=== PATIENT | female | born 1970 | race Two or more races ===

== ENCOUNTER 2022-10-01 11:00 | Inpatient (IN) | payer OTHER ==
[2022-10-01] MEDS ORDERED: ALBUTEROL SO4 2.5/IPRATROPIUM 0.5 INH SOL 3 ML VIAL.NEB. NEB ONE (11:04)
[2022-10-01] MEDS ORDERED: DEXAMETHASONE SOD PHOSPHATE 10 MG/1 ML VIAL ONE (11:06)
[2022-10-01] MEDS ORDERED: MAGNESIUM SULFATE IN WATER 2 GM/50 ML IVPB IVPB ONE (11:10)
[2022-10-01] MEDS ORDERED: MAGNESIUM SULF 50% (8.12 MEQ/2 ML-1 GM VIAL) IVPB ONE (11:14)
[2022-10-01 11:39] LABS: VENOUS BASE EXCESS -0.6 mmol/L (-2-2); VENOUS PCO2 50.7 mmHg (38-52); VENOUS PH 7.33 (7.310-7.410)
[2022-10-01 11:42] LABS: INR 1.17 (0.83-1.09); PROTHROMBIN TIME (PATIENT) 13.5 SEC (9.7-13.0)
[2022-10-01 11:45] LABS: ACTIVATED PTT 34.6 SECONDS (25.2-36.5)
[2022-10-01 11:46] LABS: CHLORIDE 108 mmol/L (98-107); SODIUM 141 mmol/L (136-145)
[2022-10-01 11:47] LABS: BASO % 0.8 % (0-2.0); EOS % 3.1 % (0-4.5); HEMATOCRIT 37.9 % (32.4-45.2); HEMOGLOBIN 12.7 GM/dL (10.7-15.3); LYMPH % 15.7 % (8-40); MCH 28.1 pg (25.7-33.7); MCHC 33.6 g/dl (32.0-36.0); MEAN CELL VOLUME 83.5 fl (80-96); MONO % 6.7 % (3.8-10.2); NEUT % 73.7 % (42.8-82.8); PLATELET COUNT 161 10^3/uL (134-434); RBC 4.53 M/mm3 (3.60-5.2); RDW 14.2 % (11.6-15.6); WHITE BLOOD COUNT 7.5 K/mm3 (4.0-10.0)
[2022-10-01 11:48] LABS: CALCIUM 9.4 mg/dL (8.5-10.1)
[2022-10-01 11:49] LABS: ALBUMIN 3.1 g/dl (3.4-5.0); ANION GAP 4 MMOL/L (8-16); BLOOD UREA NITROGEN 9.8 mg/dL (7-18); CO2 29 mmol/L (21-32); GLUCOSE,RANDOM 291 mg/dL (74-106); MAGNESIUM 1.5 mg/dL (1.8-2.4)
[2022-10-01 11:52] LABS: CREATININE 0.7 mg/dL (0.55-1.3); SGOT/AST 19 U/L (15-37)
[2022-10-01 11:54] LABS: BILIRUBIN,TOTAL 0.3 mg/dL (0.2-1); TOT PROT 7.2 g/dl (6.4-8.2)
[2022-10-01 11:55] LABS: ALK PHOS 112 U/L (45-117); N-TERMINAL BNP 2893.1 pg/ml (5-125)
[2022-10-01] MEDS ORDERED: FUROSEMIDE 40 MG/4 ML INJECTABLE VIAL IVPUSH ONE (11:56)
[2022-10-01] MEDS ORDERED: FUROSEMIDE 40 MG/4 ML INJECTABLE VIAL ONE (12:00)
[2022-10-01 12:02] LABS: SGPT/ALT 31 U/L (13-61)
[2022-10-01] MEDS ORDERED: ASPIRIN 81 MG CHEWABLE TABLETS PO ONE (13:16)
[2022-10-01] MEDS: INSULIN SLIDING SCALE (NOVOLOG) 1 VIAL SQ SCH ×3 (14:33→21:42)
[2022-10-01] MEDS ORDERED: INSULIN SLIDING SCALE (NOVOLOG) 1 VIAL SQ SCH ×4 (16:30)
[2022-10-01] MEDS ORDERED: metFORMIN HCL 500 MG TABLET (FP) PO SCH (16:30)
[2022-10-01] MEDS ORDERED: INSULIN (NOVOLOG) ASPART 100 UNITS/ML 10ML VIAL ONE (17:06)
[2022-10-01 18:08] LABS: CHOLESTEROL 198 mg/dL (50-200)
[2022-10-01 18:09] LABS: LDL CHOLESTEROL (ONLY SJRH) 122 mg/dL (5-100)
[2022-10-01 18:11] LABS: HDL CHOLESTEROL 43 mg/dL (40-60)
[2022-10-01 18:36] LABS: EPI CELLS 2 /uL (0-25.1); HYALINE CASTS 1 /uL (0-3.1); URINE APPEARANCE CLEAR; URINE BACTERIA 2 /uL (0-1359); URINE BILIRUBIN NEGATIVE (NEGATIVE); URINE COLOR YELLOW; URINE GLUCOSE (UA) 3+ (NEGATIVE); URINE KETONE NEGATIVE (NEGATIVE); URINE LEUK ESTERASE NEGATIVE (NEGATIVE); URINE NITRITE NEGATIVE (NEGATIVE); URINE PROTEIN NEGATIVE (NEGATIVE); URINE RBC 10 /uL (0-23.9); URINE UROBILINOGEN 0.2 mg/dL (0.2-1.0); URINE WBC 1 /uL (0-25.8)
[2022-10-01] MEDS: ACETAMINOPHEN 325 MG TABLET (FP) PO PRN (20:24)
[2022-10-01] MEDS: clonazePAM 0.5 MG TABLET PO PRN (20:26)
[2022-10-01 20:43] LABS: LACTIC ACID 4.7 mmol/L (0.4-2.0)
[2022-10-01] MEDS: HEPARIN NA (PORCINE) 5,000 UNITS/ML 1ML VIAL SQ SCH (21:41)
[2022-10-01] MEDS: INSULIN (LEVEMIR) 100 UNITS/ML UNITS SQ SCH (21:42)
[2022-10-01] MEDS: metoPROLOL SUCCINATE 25 MG TAB.SR.24H (FP) PO SCH (21:50)
[2022-10-01] MEDS ORDERED: DULoxetine HCL 30 MG CAPSULE.DR PO ONE (23:59)
[2022-10-02] MEDS: MELATONIN 5 MG TABLETS PO PRN (00:18)
[2022-10-02 01:00] LABS: LACTIC ACID 3.6 mmol/L (0.4-2.0)
[2022-10-02] MEDS: HEPARIN NA (PORCINE) 5,000 UNITS/ML 1ML VIAL SQ SCH ×3 (06:26→21:38)
[2022-10-02] MEDS: FUROSEMIDE 40 MG/4 ML INJECTABLE VIAL IVPUSH SCH ×2 (06:26→15:10)
[2022-10-02] MEDS: LEVOTHYROXINE NA 150 MCG TABLET PO SCH (06:27)
[2022-10-02] MEDS: INSULIN SLIDING SCALE (NOVOLOG) 1 VIAL SQ SCH ×4 (06:28→21:55)
[2022-10-02] MEDS: SPIRONOLACTONE 25 MG TABLET PO SCH (09:48)
[2022-10-02] MEDS: DULoxetine HCL 30 MG CAPSULE.DR PO SCH (09:48)
[2022-10-02] MEDS: metoPROLOL SUCCINATE 25 MG TAB.SR.24H (FP) PO SCH ×2 (09:48→21:38)
[2022-10-02] MEDS: clonazePAM 0.5 MG TABLET PO PRN ×2 (09:49→22:40)
[2022-10-02] MEDS ORDERED: FUROSEMIDE 40 MG/4 ML INJECTABLE VIAL IVPUSH SCH (10:00)
[2022-10-02] MEDS ORDERED: oxyCODONE HCL 5 MG TABLET PO ONE (20:33)
[2022-10-02] MEDS ORDERED: ACETAMINOPHEN 1000 MG/100 ML BAG IVPB ONE ×2 (20:33)
[2022-10-02] MEDS ORDERED: ALBUTEROL SO4 2.5/IPRATROPIUM 0.5 INH SOL 3 ML VIAL.NEB. NEB ONE (21:06)
[2022-10-02] MEDS ORDERED: INSULIN (NOVOLOG) ASPART 100 UNITS/ML 10ML VIAL ONE ×2 (21:46→21:48)
[2022-10-02] MEDS: INSULIN (LEVEMIR) 100 UNITS/ML UNITS SQ SCH (21:54)
[2022-10-03] MEDS ORDERED: ALBUTEROL SO4 2.5/IPRATROPIUM 0.5 INH SOL 3 ML VIAL.NEB. NEB ONE (06:37)
[2022-10-03] MEDS: HEPARIN NA (PORCINE) 5,000 UNITS/ML 1ML VIAL SQ SCH ×3 (06:41→21:09)
[2022-10-03] MEDS ORDERED: INSULIN (NOVOLOG) ASPART 100 UNITS/ML 10ML VIAL ONE ×2 (06:43→21:25)
[2022-10-03] MEDS: INSULIN SLIDING SCALE (NOVOLOG) 1 VIAL SQ SCH ×4 (06:45→21:26)
[2022-10-03] MEDS: FUROSEMIDE 40 MG/4 ML INJECTABLE VIAL IVPUSH SCH ×2 (06:45→14:14)
[2022-10-03] MEDS: LEVOTHYROXINE NA 150 MCG TABLET PO SCH (06:46)
[2022-10-03] MEDS ORDERED: ALBUTEROL SO4 0.083% IH SOL 2.5 MG/3 ML VIAL.NEB. NEB ONE (06:47)
[2022-10-03] MEDS: metoPROLOL SUCCINATE 25 MG TAB.SR.24H (FP) PO SCH ×2 (09:07→21:10)
[2022-10-03] MEDS: DULoxetine HCL 30 MG CAPSULE.DR PO SCH (09:07)
[2022-10-03] MEDS: SPIRONOLACTONE 25 MG TABLET PO SCH (09:07)
[2022-10-03] MEDS: SACUBITRIL/VALSARTAN 24 MG-26 MG TABLET PO SCH ×2 (09:08→21:09)
[2022-10-03] MEDS: ACETAMINOPHEN 325 MG TABLET (FP) PO PRN (09:20)
[2022-10-03 11:04] LABS: HEMATOCRIT 36.2 % (32.4-45.2); MCH 27.3 pg (25.7-33.7); MCHC 33.2 g/dl (32.0-36.0); MEAN CELL VOLUME 82.4 fl (80-96); MEAN PLT VOLUME 9.5 fl (7.5-11.1); PLATELET COUNT 156 10^3/uL (134-434); RDW 14.4 % (11.6-15.6); WHITE BLOOD COUNT 8.8 K/mm3 (4.0-10.0)
[2022-10-03 11:39] LABS: CALCIUM 8.6 mg/dL (8.5-10.1)
[2022-10-03 11:40] LABS: BLOOD UREA NITROGEN 23.4 mg/dL (7-18); MAGNESIUM 1.4 mg/dL (1.8-2.4)
[2022-10-03 11:43] LABS: CREATININE 0.9 mg/dL (0.55-1.3)
[2022-10-03 11:44] LABS: BILIRUBIN,TOTAL 0.4 mg/dL (0.2-1)
[2022-10-03 11:45] LABS: TOT PROT 6.6 g/dl (6.4-8.2)
[2022-10-03] MEDS ORDERED: ALBUTEROL SO4 0.042% IH SOL 1.25 MG/3 ML VIAL.NEB NEB PRN (19:26)
[2022-10-03] MEDS: CYCLOBENZAPRINE HCL 10 MG TABLET (FP) PO SCH (21:09)
[2022-10-03] MEDS: PREGABALIN 100 MG CAPSULE PO SCH (21:09)
[2022-10-03] MEDS: clonazePAM 0.5 MG TABLET PO PRN (21:14)
[2022-10-03] MEDS: INSULIN (LEVEMIR) 100 UNITS/ML UNITS SQ SCH (21:25)
[2022-10-03] MEDS ORDERED: LEVOTHYROXINE NA 150 MCG TABLET PO SCH (21:43)
[2022-10-04] MEDS: FUROSEMIDE 40 MG/4 ML INJECTABLE VIAL IVPUSH SCH ×2 (06:29→13:19)
[2022-10-04] MEDS: HEPARIN NA (PORCINE) 5,000 UNITS/ML 1ML VIAL SQ SCH ×3 (06:29→21:19)
[2022-10-04] MEDS: CYCLOBENZAPRINE HCL 10 MG TABLET (FP) PO SCH ×3 (06:29→21:19)
[2022-10-04] MEDS ORDERED: INSULIN (NOVOLOG) ASPART 100 UNITS/ML 10ML VIAL ONE ×3 (06:32→21:18)
[2022-10-04] MEDS: INSULIN SLIDING SCALE (NOVOLOG) 1 VIAL SQ SCH ×4 (06:33→21:20)
[2022-10-04] MEDS: LEVOTHYROXINE 100 MCG, LEVOTHYROXINE 75 MCG PO SCH (06:33)
[2022-10-04] MEDS: SPIRONOLACTONE 25 MG TABLET PO SCH (10:00)
[2022-10-04] MEDS: PREGABALIN 100 MG CAPSULE PO SCH ×2 (10:00→21:19)
[2022-10-04] MEDS: DULoxetine HCL 30 MG CAPSULE.DR PO SCH (10:00)
[2022-10-04] MEDS: SACUBITRIL/VALSARTAN 24 MG-26 MG TABLET PO SCH ×2 (10:01→21:07)
[2022-10-04] MEDS: metoPROLOL SUCCINATE 25 MG TAB.SR.24H (FP) PO SCH ×2 (10:01→21:07)
[2022-10-04 11:47] LABS: BASO % 0.6 % (0-2.0); EOS % 3.4 % (0-4.5); HEMATOCRIT 37.7 % (32.4-45.2); HEMOGLOBIN 12.3 GM/dL (10.7-15.3); LYMPH % 19.3 % (8-40); MCH 27.1 pg (25.7-33.7); MCHC 32.7 g/dl (32.0-36.0); MEAN CELL VOLUME 82.9 fl (80-96); MEAN PLT VOLUME 9.2 fl (7.5-11.1); MONO % 9.4 % (3.8-10.2); NEUT % 67.3 % (42.8-82.8); PLATELET COUNT 166 10^3/uL (134-434); RBC 4.55 M/mm3 (3.60-5.2); RDW 14.4 % (11.6-15.6)
[2022-10-04 12:14] LABS: CALCIUM 8.6 mg/dL (8.5-10.1)
[2022-10-04 12:15] LABS: ALBUMIN 2.8 g/dl (3.4-5.0); BLOOD UREA NITROGEN 21.9 mg/dL (7-18)
[2022-10-04 12:19] LABS: BILIRUBIN,TOTAL 0.4 mg/dL (0.2-1); TOT PROT 6.3 g/dl (6.4-8.2)
[2022-10-04] MEDS: ALBUTEROL SO4 2.5/IPRATROPIUM 0.5 INH SOL 3 ML VIAL.NEB. NEB SCH ×2 (14:30→20:45)
[2022-10-04] MEDS ORDERED: SODIUM CHLORIDE 250 ML IV STA (17:43)
[2022-10-04] MEDS: INSULIN (LEVEMIR) 100 UNITS/ML UNITS SQ SCH (21:19)
[2022-10-04] MEDS: MELATONIN 5 MG TABLETS PO PRN (21:26)
[2022-10-05] MEDS: LEVOTHYROXINE 100 MCG, LEVOTHYROXINE 75 MCG PO SCH (06:19)
[2022-10-05] MEDS: HEPARIN NA (PORCINE) 5,000 UNITS/ML 1ML VIAL SQ SCH ×3 (06:19→22:18)
[2022-10-05] MEDS: CYCLOBENZAPRINE HCL 10 MG TABLET (FP) PO SCH ×3 (06:19→22:18)
[2022-10-05] MEDS: FUROSEMIDE 40 MG/4 ML INJECTABLE VIAL IVPUSH SCH (06:19)
[2022-10-05] MEDS: ACETAMINOPHEN 325 MG TABLET (FP) PO PRN ×2 (06:27→12:10)
[2022-10-05] MEDS: INSULIN SLIDING SCALE (NOVOLOG) 1 VIAL SQ SCH ×4 (06:28→22:29)
[2022-10-05] MEDS ORDERED: MAGNESIUM SULF 50% (8.12 MEQ/2 ML-1 GM VIAL) IVPB ONE (08:30)
[2022-10-05] MEDS: ALBUTEROL SO4 2.5/IPRATROPIUM 0.5 INH SOL 3 ML VIAL.NEB. NEB SCH ×3 (08:40→20:50)
[2022-10-05] MEDS: SPIRONOLACTONE 25 MG TABLET PO SCH (09:53)
[2022-10-05] MEDS: PREGABALIN 100 MG CAPSULE PO SCH ×2 (09:54→22:18)
[2022-10-05] MEDS: SACUBITRIL/VALSARTAN 24 MG-26 MG TABLET PO SCH ×2 (09:54→22:18)
[2022-10-05] MEDS: metoPROLOL SUCCINATE 25 MG TAB.SR.24H (FP) PO SCH ×2 (09:55→22:18)
[2022-10-05] MEDS: DULoxetine HCL 30 MG CAPSULE.DR PO SCH (09:56)
[2022-10-05 11:31] LABS: BASO % 0.7 % (0-2.0); EOS % 3.4 % (0-4.5); HEMOGLOBIN 12.1 GM/dL (10.7-15.3); LYMPH % 19.5 % (8-40); MCH 27.3 pg (25.7-33.7); MCHC 32.9 g/dl (32.0-36.0); MEAN CELL VOLUME 83.1 fl (80-96); MEAN PLT VOLUME 9.4 fl (7.5-11.1); MONO % 7.1 % (3.8-10.2); NEUT % 69.3 % (42.8-82.8); PLATELET COUNT 156 10^3/uL (134-434); RBC 4.45 M/mm3 (3.60-5.2); RDW 14.3 % (11.6-15.6); WHITE BLOOD COUNT 6.8 K/mm3 (4.0-10.0)
[2022-10-05 11:46] LABS: ALBUMIN 2.8 g/dl (3.4-5.0); BLOOD UREA NITROGEN 26.3 mg/dL (7-18); CALCIUM 8.6 mg/dL (8.5-10.1)
[2022-10-05 11:48] LABS: CREATININE 0.8 mg/dL (0.55-1.3)
[2022-10-05 11:50] LABS: BILIRUBIN,TOTAL 0.5 mg/dL (0.2-1)
[2022-10-05 11:52] LABS: TOT PROT 6.2 g/dl (6.4-8.2)
[2022-10-05] MEDS ORDERED: INSULIN (NOVOLOG) ASPART 100 UNITS/ML 10ML VIAL ONE ×2 (12:07→16:47)
[2022-10-05] MEDS: MELATONIN 5 MG TABLETS PO PRN (22:18)
[2022-10-05] MEDS: INSULIN (LEVEMIR) 100 UNITS/ML UNITS SQ SCH (22:23)
[2022-10-06] MEDS: ACETAMINOPHEN 325 MG TABLET (FP) PO PRN (01:05)
[2022-10-06] MEDS: LEVOTHYROXINE 100 MCG, LEVOTHYROXINE 75 MCG PO SCH (06:26)
[2022-10-06] MEDS: CYCLOBENZAPRINE HCL 10 MG TABLET (FP) PO SCH ×3 (06:26→21:55)
[2022-10-06] MEDS: INSULIN SLIDING SCALE (NOVOLOG) 1 VIAL SQ SCH ×4 (06:28→22:31)
[2022-10-06] MEDS: HEPARIN NA (PORCINE) 5,000 UNITS/ML 1ML VIAL SQ SCH ×3 (06:29→21:56)
[2022-10-06] MEDS: ALBUTEROL SO4 2.5/IPRATROPIUM 0.5 INH SOL 3 ML VIAL.NEB. NEB SCH ×3 (08:25→21:25)
[2022-10-06] MEDS ORDERED: clonazePAM 2 MG TABLET PO SCH (10:00)
[2022-10-06] MEDS: SPIRONOLACTONE 25 MG TABLET PO SCH (10:08)
[2022-10-06] MEDS: SACUBITRIL/VALSARTAN 24 MG-26 MG TABLET PO SCH ×2 (10:10→21:55)
[2022-10-06] MEDS: TORSEMIDE 20 MG TABLET (FP) PO SCH (10:10)
[2022-10-06] MEDS: DULoxetine HCL 30 MG CAPSULE.DR PO SCH (10:11)
[2022-10-06] MEDS: metoPROLOL SUCCINATE 25 MG TAB.SR.24H (FP) PO SCH ×2 (10:11→21:55)
[2022-10-06] MEDS: PREGABALIN 100 MG CAPSULE PO SCH ×2 (10:12→21:55)
[2022-10-06] MEDS ORDERED: INSULIN (NOVOLOG) ASPART 100 UNITS/ML 10ML VIAL ONE ×3 (12:14→22:29)
[2022-10-06] MEDS: clonazePAM 0.5 MG TABLET PO PRN (21:55)
[2022-10-06] MEDS: MELATONIN 5 MG TABLETS PO PRN (21:55)
[2022-10-06] MEDS: INSULIN (LEVEMIR) 100 UNITS/ML UNITS SQ SCH (22:30)
[2022-10-07] MEDS: HEPARIN NA (PORCINE) 5,000 UNITS/ML 1ML VIAL SQ SCH ×3 (06:11→21:05)
[2022-10-07] MEDS ORDERED: INSULIN (NOVOLOG) ASPART 100 UNITS/ML 10ML VIAL ONE ×3 (06:57→11:48)
[2022-10-07] MEDS: LEVOTHYROXINE 100 MCG, LEVOTHYROXINE 75 MCG PO SCH (06:58)
[2022-10-07] MEDS: CYCLOBENZAPRINE HCL 10 MG TABLET (FP) PO SCH ×3 (06:58→21:06)
[2022-10-07] MEDS: INSULIN SLIDING SCALE (NOVOLOG) 1 VIAL SQ SCH ×4 (06:58→22:39)
[2022-10-07] MEDS: ALBUTEROL SO4 2.5/IPRATROPIUM 0.5 INH SOL 3 ML VIAL.NEB. NEB SCH ×3 (08:40→20:36)
[2022-10-07] MEDS: DULoxetine HCL 30 MG CAPSULE.DR PO SCH (09:58)
[2022-10-07] MEDS: PREGABALIN 100 MG CAPSULE PO SCH ×2 (09:58→21:08)
[2022-10-07] MEDS: SACUBITRIL/VALSARTAN 24 MG-26 MG TABLET PO SCH ×2 (09:59→21:06)
[2022-10-07] MEDS: TORSEMIDE 20 MG TABLET (FP) PO SCH (09:59)
[2022-10-07] MEDS: SPIRONOLACTONE 25 MG TABLET PO SCH (09:59)
[2022-10-07] MEDS: metoPROLOL SUCCINATE 25 MG TAB.SR.24H (FP) PO SCH ×2 (09:59→21:11)
[2022-10-07 16:11] LABS: EPI CELLS >36 /uL (0-25.1); HYALINE CASTS 3 /uL (0-3.1); PH,URINE 6.5 (5.0-8.0); URINE APPEARANCE CLOUDY; URINE BACTERIA >9,000 /uL (0-1359); URINE BILIRUBIN NEGATIVE (NEGATIVE); URINE COLOR YELLOW; URINE GLUCOSE (UA) 2+ (NEGATIVE); URINE KETONE NEGATIVE (NEGATIVE); URINE LEUK ESTERASE 3+ (NEGATIVE); URINE NITRITE POSITIVE (NEGATIVE); URINE PROTEIN 1+ (NEGATIVE); URINE RBC 31 /uL (0-23.9); URINE WBC 1840 /uL (0-25.8)
[2022-10-07] MEDS: COLLAGENASE CLOSTRIDIUM HIST. 30 GRAMS TUBE TP SCH (18:56)
[2022-10-07] MEDS: MELATONIN 5 MG TABLETS PO PRN (21:06)
[2022-10-07] MEDS: clonazePAM 0.5 MG TABLET PO PRN (21:07)
[2022-10-07] MEDS: INSULIN (LEVEMIR) 100 UNITS/ML UNITS SQ SCH (22:38)
[2022-10-07 23:36] VITALS: BMI 56.5
[2022-10-08] MEDS: HEPARIN NA (PORCINE) 5,000 UNITS/ML 1ML VIAL SQ SCH ×3 (06:47→21:47)
[2022-10-08] MEDS: LEVOTHYROXINE 100 MCG, LEVOTHYROXINE 75 MCG PO SCH (06:48)
[2022-10-08] MEDS: INSULIN SLIDING SCALE (NOVOLOG) 1 VIAL SQ SCH ×4 (06:49→22:52)
[2022-10-08] MEDS: CYCLOBENZAPRINE HCL 10 MG TABLET (FP) PO SCH ×3 (06:55→21:53)
[2022-10-08] MEDS: ALBUTEROL SO4 2.5/IPRATROPIUM 0.5 INH SOL 3 ML VIAL.NEB. NEB SCH ×3 (07:40→20:05)
[2022-10-08] MEDS: SACUBITRIL/VALSARTAN 24 MG-26 MG TABLET PO SCH ×2 (10:39→21:49)
[2022-10-08] MEDS: COLLAGENASE CLOSTRIDIUM HIST. 30 GRAMS TUBE TP SCH (10:40)
[2022-10-08] MEDS: metoPROLOL SUCCINATE 25 MG TAB.SR.24H (FP) PO SCH ×2 (10:40→21:48)
[2022-10-08] MEDS: DULoxetine HCL 30 MG CAPSULE.DR PO SCH (10:41)
[2022-10-08] MEDS: PREGABALIN 100 MG CAPSULE PO SCH ×2 (10:41→21:48)
[2022-10-08] MEDS: SPIRONOLACTONE 25 MG TABLET PO SCH (10:42)
[2022-10-08] MEDS: TORSEMIDE 20 MG TABLET (FP) PO SCH (10:42)
[2022-10-08] MEDS: clonazePAM 0.5 MG TABLET PO PRN (21:48)
[2022-10-08] MEDS: MELATONIN 5 MG TABLETS PO PRN (21:54)
[2022-10-08] MEDS: INSULIN (LEVEMIR) 100 UNITS/ML UNITS SQ SCH (22:51)
[2022-10-09] MEDS: ACETAMINOPHEN 325 MG TABLET (FP) PO PRN ×2 (05:33→21:57)
[2022-10-09] MEDS: CYCLOBENZAPRINE HCL 10 MG TABLET (FP) PO SCH ×3 (05:35→21:59)
[2022-10-09] MEDS: INSULIN (LEVEMIR) 100 UNITS/ML UNITS SQ SCH ×2 (06:22→22:53)
[2022-10-09] MEDS: LEVOTHYROXINE 100 MCG, LEVOTHYROXINE 75 MCG PO SCH (06:23)
[2022-10-09] MEDS: INSULIN SLIDING SCALE (NOVOLOG) 1 VIAL SQ SCH ×4 (06:23→22:57)
[2022-10-09] MEDS: ALBUTEROL SO4 2.5/IPRATROPIUM 0.5 INH SOL 3 ML VIAL.NEB. NEB SCH (08:10)
[2022-10-09] MEDS: SPIRONOLACTONE 25 MG TABLET PO SCH (09:06)
[2022-10-09] MEDS: DULoxetine HCL 30 MG CAPSULE.DR PO SCH (09:07)
[2022-10-09] MEDS: TORSEMIDE 20 MG TABLET (FP) PO SCH (09:07)
[2022-10-09] MEDS: metoPROLOL SUCCINATE 25 MG TAB.SR.24H (FP) PO SCH (09:08)
[2022-10-09] MEDS: COLLAGENASE CLOSTRIDIUM HIST. 30 GRAMS TUBE TP SCH (09:08)
[2022-10-09] MEDS: PREGABALIN 100 MG CAPSULE PO SCH ×2 (09:08→21:59)
[2022-10-09] MEDS: SACUBITRIL/VALSARTAN 24 MG-26 MG TABLET PO SCH ×2 (09:08→21:59)
[2022-10-09] MEDS ORDERED: FLUCONAZOLE 100 MG TABLET (UD) PO ONE (09:47)
[2022-10-09] MEDS: NYSTATIN 100,000 UNIT/GM TOPICAL CREAM 15 GM TUBE TP SCH ×2 (12:22→21:59)
[2022-10-09] MEDS ORDERED: INSULIN (NOVOLOG) ASPART 100 UNITS/ML 10ML VIAL ONE ×2 (12:37→16:37)
[2022-10-09] MEDS: MELATONIN 5 MG TABLETS PO PRN (22:01)
[2022-10-09] MEDS ORDERED: clonazePAM 0.5 MG TABLET PO ONE (23:17)
[2022-10-10] MEDS: LEVOTHYROXINE 100 MCG, LEVOTHYROXINE 75 MCG PO SCH (06:35)
[2022-10-10] MEDS: CYCLOBENZAPRINE HCL 10 MG TABLET (FP) PO SCH ×3 (06:35→21:34)
[2022-10-10] MEDS: INSULIN (LEVEMIR) 100 UNITS/ML UNITS SQ SCH ×2 (06:37→21:35)
[2022-10-10] MEDS: INSULIN SLIDING SCALE (NOVOLOG) 1 VIAL SQ SCH ×4 (06:38→21:31)
[2022-10-10] MEDS: DULoxetine HCL 30 MG CAPSULE.DR PO SCH (09:36)
[2022-10-10] MEDS: SACUBITRIL/VALSARTAN 24 MG-26 MG TABLET PO SCH ×2 (09:37→21:35)
[2022-10-10] MEDS: PREGABALIN 100 MG CAPSULE PO SCH ×2 (09:37→21:36)
[2022-10-10] MEDS: TORSEMIDE 20 MG TABLET (FP) PO SCH (09:37)
[2022-10-10] MEDS: COLLAGENASE CLOSTRIDIUM HIST. 30 GRAMS TUBE TP SCH (09:38)
[2022-10-10] MEDS: SPIRONOLACTONE 25 MG TABLET PO SCH (10:00)
[2022-10-10] MEDS: metoPROLOL SUCCINATE 25 MG TAB.SR.24H (FP) PO SCH (10:00)
[2022-10-10] MEDS: NYSTATIN 100,000 UNIT/GM TOPICAL CREAM 15 GM TUBE TP SCH ×2 (10:00→23:10)
[2022-10-10] MEDS ORDERED: INSULIN (NOVOLOG) ASPART 100 UNITS/ML 10ML VIAL ONE (21:32)
[2022-10-10] MEDS: MELATONIN 5 MG TABLETS PO PRN (21:40)
[2022-10-11] MEDS: ACETAMINOPHEN 325 MG TABLET (FP) PO PRN ×2 (05:29→21:42)
[2022-10-11] MEDS: CYCLOBENZAPRINE HCL 10 MG TABLET (FP) PO SCH ×3 (05:31→21:41)
[2022-10-11] MEDS ORDERED: INSULIN (NOVOLOG) ASPART 100 UNITS/ML 10ML VIAL ONE ×4 (06:22→21:40)
[2022-10-11] MEDS: LEVOTHYROXINE 100 MCG, LEVOTHYROXINE 75 MCG PO SCH (06:23)
[2022-10-11] MEDS: INSULIN (LEVEMIR) 100 UNITS/ML UNITS SQ SCH ×2 (06:23→21:44)
[2022-10-11] MEDS: INSULIN SLIDING SCALE (NOVOLOG) 1 VIAL SQ SCH ×4 (06:24→21:45)
[2022-10-11] MEDS: COLLAGENASE CLOSTRIDIUM HIST. 30 GRAMS TUBE TP SCH (09:43)
[2022-10-11] MEDS: SACUBITRIL/VALSARTAN 24 MG-26 MG TABLET PO SCH ×2 (09:44→21:42)
[2022-10-11] MEDS: DULoxetine HCL 30 MG CAPSULE.DR PO SCH (09:44)
[2022-10-11] MEDS: SPIRONOLACTONE 25 MG TABLET PO SCH (09:44)
[2022-10-11] MEDS: TORSEMIDE 20 MG TABLET (FP) PO SCH (09:44)
[2022-10-11] MEDS: metoPROLOL SUCCINATE 25 MG TAB.SR.24H (FP) PO SCH (09:45)
[2022-10-11] MEDS: NYSTATIN 100,000 UNIT/GM TOPICAL CREAM 15 GM TUBE TP SCH ×2 (09:46→21:51)
[2022-10-11] MEDS: MELATONIN 5 MG TABLETS PO PRN (21:42)
[2022-10-11] MEDS: ATORVASTATIN CA 20 MG TABLET (FP) PO SCH (21:42)
[2022-10-12] MEDS ORDERED: INSULIN (NOVOLOG) ASPART 100 UNITS/ML 10ML VIAL ONE ×3 (06:18→16:17)
[2022-10-12] MEDS: LEVOTHYROXINE 100 MCG, LEVOTHYROXINE 75 MCG PO SCH (06:21)
[2022-10-12] MEDS: CYCLOBENZAPRINE HCL 10 MG TABLET (FP) PO SCH ×3 (06:21→21:29)
[2022-10-12] MEDS: INSULIN (LEVEMIR) 100 UNITS/ML UNITS SQ SCH ×2 (06:22→21:35)
[2022-10-12] MEDS: INSULIN SLIDING SCALE (NOVOLOG) 1 VIAL SQ SCH ×4 (06:23→21:35)
[2022-10-12] MEDS: SACUBITRIL/VALSARTAN 24 MG-26 MG TABLET PO SCH ×2 (09:41→21:34)
[2022-10-12] MEDS: TORSEMIDE 20 MG TABLET (FP) PO SCH (09:41)
[2022-10-12] MEDS: DULoxetine HCL 30 MG CAPSULE.DR PO SCH (09:42)
[2022-10-12] MEDS: COLLAGENASE CLOSTRIDIUM HIST. 30 GRAMS TUBE TP SCH (09:43)
[2022-10-12] MEDS: SPIRONOLACTONE 25 MG TABLET PO SCH (09:43)
[2022-10-12] MEDS: NYSTATIN 100,000 UNIT/GM TOPICAL CREAM 15 GM TUBE TP SCH ×2 (09:44→21:34)
[2022-10-12] MEDS: metoPROLOL SUCCINATE 25 MG TAB.SR.24H (FP) PO SCH (09:44)
[2022-10-12] MEDS: ACETAMINOPHEN 325 MG TABLET (FP) PO PRN (18:15)
[2022-10-12] MEDS: MELATONIN 5 MG TABLETS PO PRN (21:28)
[2022-10-12] MEDS: ATORVASTATIN CA 20 MG TABLET (FP) PO SCH (21:29)
[2022-10-13 03:37] VITALS: RESP 18
[2022-10-13] MEDS: INSULIN (LEVEMIR) 100 UNITS/ML UNITS SQ SCH ×2 (06:25→21:07)
[2022-10-13] MEDS: LEVOTHYROXINE 100 MCG, LEVOTHYROXINE 75 MCG PO SCH (06:26)
[2022-10-13] MEDS: INSULIN SLIDING SCALE (NOVOLOG) 1 VIAL SQ SCH ×5 (06:26→21:07)
[2022-10-13] MEDS: ACETAMINOPHEN 325 MG TABLET (FP) PO PRN (06:27)
[2022-10-13] MEDS: CYCLOBENZAPRINE HCL 10 MG TABLET (FP) PO SCH ×3 (06:27→21:06)
[2022-10-13] MEDS ORDERED: INSULIN (NOVOLOG) ASPART 100 UNITS/ML 10ML VIAL ONE ×4 (06:40→16:38)
[2022-10-13] MEDS ORDERED: clonazePAM 0.5 MG TABLET PO PRN (08:12)
[2022-10-13] MEDS: PREGABALIN 100 MG CAPSULE PO SCH ×2 (09:58→21:07)
[2022-10-13] MEDS: metoPROLOL SUCCINATE 25 MG TAB.SR.24H (FP) PO SCH (09:58)
[2022-10-13] MEDS: SACUBITRIL/VALSARTAN 24 MG-26 MG TABLET PO SCH ×2 (09:58→22:34)
[2022-10-13] MEDS: SPIRONOLACTONE 25 MG TABLET PO SCH (09:59)
[2022-10-13] MEDS: DULoxetine HCL 30 MG CAPSULE.DR PO SCH (09:59)
[2022-10-13] MEDS: TORSEMIDE 20 MG TABLET (FP) PO SCH (10:01)
[2022-10-13] MEDS: NYSTATIN 100,000 UNIT/GM TOPICAL CREAM 15 GM TUBE TP SCH ×2 (10:02→21:07)
[2022-10-13] MEDS: COLLAGENASE CLOSTRIDIUM HIST. 30 GRAMS TUBE TP SCH (10:02)
[2022-10-13] MEDS: ATORVASTATIN CA 20 MG TABLET (FP) PO SCH (21:06)
[2022-10-14] MEDS: CYCLOBENZAPRINE HCL 10 MG TABLET (FP) PO SCH ×3 (05:34→22:11)
[2022-10-14] MEDS: INSULIN (LEVEMIR) 100 UNITS/ML UNITS SQ SCH ×2 (06:07→22:13)
[2022-10-14] MEDS: INSULIN SLIDING SCALE (NOVOLOG) 1 VIAL SQ SCH ×4 (06:07→22:13)
[2022-10-14] MEDS: LEVOTHYROXINE 100 MCG, LEVOTHYROXINE 75 MCG PO SCH (06:08)
[2022-10-14] MEDS: PREGABALIN 100 MG CAPSULE PO SCH ×2 (10:00→22:11)
[2022-10-14] MEDS: DULoxetine HCL 30 MG CAPSULE.DR PO SCH (10:00)
[2022-10-14] MEDS: metoPROLOL SUCCINATE 25 MG TAB.SR.24H (FP) PO SCH (10:00)
[2022-10-14] MEDS: SACUBITRIL/VALSARTAN 24 MG-26 MG TABLET PO SCH ×2 (10:00→22:11)
[2022-10-14] MEDS: TORSEMIDE 20 MG TABLET (FP) PO SCH (10:00)
[2022-10-14] MEDS: NYSTATIN 100,000 UNIT/GM TOPICAL CREAM 15 GM TUBE TP SCH ×2 (10:01→22:14)
[2022-10-14] MEDS: SPIRONOLACTONE 25 MG TABLET PO SCH (10:01)
[2022-10-14] MEDS ORDERED: INSULIN (NOVOLOG) ASPART 100 UNITS/ML 10ML VIAL ONE ×2 (11:00→21:11)
[2022-10-14] MEDS: clonazePAM 0.5 MG TABLET PO PRN ×2 (12:45→22:18)
[2022-10-14] MEDS: ACETAMINOPHEN 325 MG TABLET (FP) PO PRN (12:45)
[2022-10-14] MEDS: COLLAGENASE CLOSTRIDIUM HIST. 30 GRAMS TUBE TP SCH (14:04)
[2022-10-14] MEDS: ATORVASTATIN CA 20 MG TABLET (FP) PO SCH (22:11)
[2022-10-15 05:46] VITALS: PULSE 102
[2022-10-15] MEDS: CYCLOBENZAPRINE HCL 10 MG TABLET (FP) PO SCH (06:17)
[2022-10-15] MEDS: INSULIN (LEVEMIR) 100 UNITS/ML UNITS SQ SCH (06:17)
[2022-10-15] MEDS: INSULIN SLIDING SCALE (NOVOLOG) 1 VIAL SQ SCH (06:18)
[2022-10-15] MEDS: clonazePAM 0.5 MG TABLET PO PRN (06:21)
[2022-10-15] MEDS: LEVOTHYROXINE 100 MCG, LEVOTHYROXINE 75 MCG PO SCH (06:25)
[2022-10-15 08:32] VITALS: BP 87/55; TEMP 98.4
[2022-10-15 08:51] LABS: HEMATOCRIT 37.7 % (32.4-45.2); HEMOGLOBIN 12.6 GM/dL (10.7-15.3); MCH 27.5 pg (25.7-33.7); MCHC 33.3 g/dl (32.0-36.0); MEAN CELL VOLUME 82.6 fl (80-96); MEAN PLT VOLUME 9.3 fl (7.5-11.1); PLATELET COUNT 158 10^3/uL (134-434); RBC 4.57 M/mm3 (3.60-5.2); RDW 14.7 % (11.6-15.6); WHITE BLOOD COUNT 6.8 K/mm3 (4.0-10.0)
[2022-10-15 09:13] LABS: BLOOD UREA NITROGEN 33.3 mg/dL (7-18)
[2022-10-15 09:17] LABS: CREATININE 1.1 mg/dL (0.55-1.3)
[2022-10-15] MEDS: metoPROLOL SUCCINATE 25 MG TAB.SR.24H (FP) PO SCH (09:29)
[2022-10-15] MEDS: NYSTATIN 100,000 UNIT/GM TOPICAL CREAM 15 GM TUBE TP SCH (09:29)
[2022-10-15] MEDS: PREGABALIN 100 MG CAPSULE PO SCH (09:30)
[2022-10-15] MEDS: DULoxetine HCL 30 MG CAPSULE.DR PO SCH (09:30)
[2022-10-15] MEDS: SPIRONOLACTONE 25 MG TABLET PO SCH (09:31)
[2022-10-15] MEDS: SACUBITRIL/VALSARTAN 24 MG-26 MG TABLET PO SCH (09:32)
[2022-10-15] MEDS: TORSEMIDE 20 MG TABLET (FP) PO SCH (09:33)
[2022-10-15] MEDS: COLLAGENASE CLOSTRIDIUM HIST. 30 GRAMS TUBE TP SCH (09:34)
== END 2022-10-15 11:50 | DRG 194 ==
LOC: JER 11:00 → JERBED 12:57 → J4W 14:56 → J7W 10-13 18:49
PROVIDERS: ADMIT Family Medicine; ATTEND Family Medicine
DX: I11.0 Hypertensive heart disease with heart failure (principal); J96.01 Acute respiratory failure with hypoxia; I50.23 Acute on chronic systolic (congestive) heart failure; E66.01 Morbid (severe) obesity due to excess calories; E11.40 Type 2 diabetes mellitus with diabetic neuropathy, unspecified; Z68.43 Body mass index [BMI] 50.0-59.9, adult; E03.9 Hypothyroidism, unspecified; G47.33 Obstructive sleep apnea (adult) (pediatric); I42.8 Other cardiomyopathies; M79.7 Fibromyalgia; N39.0 Urinary tract infection, site not specified; N76.0 Acute vaginitis; E83.42 Hypomagnesemia
CPT/HCPCS: 0241U-QW; 36415; 71045-TC-FY; 71046-TC-FY; 71260-TC; 73201-TC-RT; 80048; 80053; 80061; 81003; 82550; 82803; 82962; 83036; 83605; 83735; 83880; 84439; 84443; 84484; 84703; 85025; 85027; 85610; 85730; 87040; 87086; 87186; 93005; 93010; 93306-TC; 93971; 94640; 94660; 97116-GP; 97162-GP; 99285-25; C9803-CS; J1644; Q9967; U0003; U0005

== ENCOUNTER 2022-11-25 17:11 | Inpatient (IN) | payer OTHER ==
[2022-11-25] MEDS ORDERED: ALBUTEROL SO4 2.5/IPRATROPIUM 0.5 INH SOL 3 ML VIAL.NEB. NEB ONE (17:56)
[2022-11-25] MEDS ORDERED: FUROSEMIDE 40 MG/4 ML INJECTABLE VIAL IVPUSH ONE (17:56)
[2022-11-25 18:51] LABS: VENOUS BASE EXCESS 0.3 mmol/L (-2-2); VENOUS O2 SATURATION 32.1 % (70-80); VENOUS PCO2 56.5 mmHg (38-52); VENOUS PH 7.307 (7.310-7.410)
[2022-11-25 18:58] LABS: BASO % 0.5 % (0-2.0); EOS % 1.6 % (0-4.5); HEMATOCRIT 37.6 % (32.4-45.2); HEMOGLOBIN 12.5 GM/dL (10.7-15.3); LYMPH % 18.3 % (8-40); MCH 27.7 pg (25.7-33.7); MCHC 33.2 g/dl (32.0-36.0); MEAN CELL VOLUME 83.3 fl (80-96); MEAN PLT VOLUME 10.1 fl (7.5-11.1); MONO % 7.8 % (3.8-10.2); NEUT % 71.8 % (42.8-82.8); PLATELET COUNT 164 10^3/uL (134-434); RBC 4.51 M/mm3 (3.60-5.2); RDW 14.6 % (11.6-15.6); WHITE BLOOD COUNT 7.4 K/mm3 (4.0-10.0)
[2022-11-25 19:22] LABS: POTASSIUM 4.9 mmol/L (3.5-5.1)
[2022-11-25 19:25] LABS: CALCIUM 8.9 mg/dL (8.5-10.1)
[2022-11-25 19:26] LABS: ALBUMIN 3.4 g/dl (3.4-5.0); BLOOD UREA NITROGEN 19.8 mg/dL (7-18); MAGNESIUM 1.7 mg/dL (1.8-2.4)
[2022-11-25 19:29] LABS: CREATININE 0.9 mg/dL (0.55-1.3)
[2022-11-25 19:30] LABS: BILIRUBIN,TOTAL 0.5 mg/dL (0.2-1); TOT PROT 7.4 g/dl (6.4-8.2)
[2022-11-25 19:34] LABS: N-TERMINAL BNP 1011.4 pg/ml (5-125)
[2022-11-25 20:49] LABS: INR 1.19 (0.83-1.09); PROTHROMBIN TIME (PATIENT) 13.8 SEC (9.7-13.0)
[2022-11-25 20:51] LABS: ACTIVATED PTT 36.8 SECONDS (25.2-36.5)
[2022-11-25] MEDS ORDERED: ALBUTEROL SO4 2.5/IPRATROPIUM 0.5 INH SOL 3 ML VIAL.NEB. NEB PRN (23:42)
[2022-11-26] MEDS ORDERED: clonazePAM 0.5 MG TABLET PO ONE (00:50)
[2022-11-26] MEDS ORDERED: DULoxetine HCL 30 MG CAPSULE.DR PO ONE (00:52)
[2022-11-26] MEDS: CYCLOBENZAPRINE HCL 10 MG TABLET (FP) PO PRN ×2 (01:04→08:52)
[2022-11-26] MEDS ORDERED: LEVOTHYROXINE NA 150 MCG TABLET PO SCH (07:00)
[2022-11-26 07:26] LABS: BASO % 0.8 % (0-2.0); EOS % 1.7 % (0-4.5); HEMATOCRIT 37.1 % (32.4-45.2); HEMOGLOBIN 12.5 GM/dL (10.7-15.3); LYMPH % 19.5 % (8-40); MCH 27.8 pg (25.7-33.7); MCHC 33.5 g/dl (32.0-36.0); MEAN CELL VOLUME 82.8 fl (80-96); MEAN PLT VOLUME 10.5 fl (7.5-11.1); MONO % 7.9 % (3.8-10.2); NEUT % 70.1 % (42.8-82.8); PLATELET COUNT 167 10^3/uL (134-434); RBC 4.49 M/mm3 (3.60-5.2); RDW 14.2 % (11.6-15.6); WHITE BLOOD COUNT 8.2 K/mm3 (4.0-10.0)
[2022-11-26 07:30] LABS: POTASSIUM 4.3 mmol/L (3.5-5.1)
[2022-11-26 07:34] LABS: BLOOD UREA NITROGEN 22.5 mg/dL (7-18); CALCIUM 9.1 mg/dL (8.5-10.1)
[2022-11-26 07:38] LABS: CREATININE 0.8 mg/dL (0.55-1.3)
[2022-11-26] MEDS ORDERED: INSULIN (NOVOLOG) ASPART 100 UNITS/ML 10ML VIAL ONE ×3 (08:42→21:43)
[2022-11-26] MEDS: LEVOTHYROXINE 100 MCG, LEVOTHYROXINE 75 MCG PO SCH (08:44)
[2022-11-26] MEDS: INSULIN SLIDING SCALE (NOVOLOG) 1 VIAL SQ SCH ×4 (08:44→21:44)
[2022-11-26] MEDS: SACUBITRIL/VALSARTAN 24 MG-26 MG TABLET PO SCH ×2 (09:31→21:38)
[2022-11-26] MEDS: DULoxetine HCL 30 MG CAPSULE.DR PO SCH ×2 (09:31→21:38)
[2022-11-26] MEDS: ASPIRIN COATED 81 MG TABLET.EC PO SCH (09:31)
[2022-11-26] MEDS: PREGABALIN 100 MG CAPSULE PO SCH ×2 (09:31→21:38)
[2022-11-26] MEDS: PANTOPRAZOLE 40 MG TABLET PO SCH (09:31)
[2022-11-26] MEDS ORDERED: metoPROLOL SUCCINATE 25 MG TAB.SR.24H (FP) PO SCH (10:00)
[2022-11-26] MEDS ORDERED: TORSEMIDE 20 MG TABLET (FP) PO SCH (10:00)
[2022-11-26] MEDS: HEPARIN NA (PORCINE) 5,000 UNITS/ML 1ML VIAL SQ SCH ×2 (10:23→21:37)
[2022-11-26] MEDS: metoPROLOL SUCCINATE 25 MG TAB.SR.24H (FP) PO SCH ×2 (10:23→10:24)
[2022-11-26] MEDS: FUROSEMIDE 40 MG/4 ML INJECTABLE VIAL IVPUSH SCH (11:23)
[2022-11-26] MEDS: COLLAGENASE CLOSTRIDIUM HIST. 30 GRAMS TUBE TP SCH (14:07)
[2022-11-26] MEDS: ACETAMINOPHEN 1000 MG/100 ML BAG IVPB PRN ×2 (14:17→21:50)
[2022-11-26 15:36] VITALS: BMI 55.5
[2022-11-27] MEDS ORDERED: INSULIN (NOVOLOG) ASPART 100 UNITS/ML 10ML VIAL ONE ×3 (06:13→16:48)
[2022-11-27] MEDS: INSULIN SLIDING SCALE (NOVOLOG) 1 VIAL SQ SCH ×4 (06:15→21:40)
[2022-11-27] MEDS: LEVOTHYROXINE 100 MCG, LEVOTHYROXINE 75 MCG PO SCH (06:16)
[2022-11-27] MEDS: metoPROLOL SUCCINATE 25 MG TAB.SR.24H (FP) PO SCH (09:20)
[2022-11-27] MEDS: PANTOPRAZOLE 40 MG TABLET PO SCH (09:20)
[2022-11-27] MEDS: FUROSEMIDE 40 MG/4 ML INJECTABLE VIAL IVPUSH SCH ×2 (09:20→15:15)
[2022-11-27] MEDS: HEPARIN NA (PORCINE) 5,000 UNITS/ML 1ML VIAL SQ SCH ×2 (09:20→21:38)
[2022-11-27] MEDS: ASPIRIN COATED 81 MG TABLET.EC PO SCH (09:21)
[2022-11-27] MEDS: COLLAGENASE CLOSTRIDIUM HIST. 30 GRAMS TUBE TP SCH (09:21)
[2022-11-27] MEDS: PREGABALIN 100 MG CAPSULE PO SCH ×2 (09:21→21:39)
[2022-11-27] MEDS: DULoxetine HCL 30 MG CAPSULE.DR PO SCH ×2 (09:21→21:39)
[2022-11-27] MEDS: SACUBITRIL/VALSARTAN 24 MG-26 MG TABLET PO SCH (09:21)
[2022-11-27 09:27] LABS: BASO % 0.8 % (0-2.0); EOS % 2.1 % (0-4.5); HEMATOCRIT 35.6 % (32.4-45.2); HEMOGLOBIN 11.9 GM/dL (10.7-15.3); LYMPH % 21.3 % (8-40); MCH 27.6 pg (25.7-33.7); MCHC 33.3 g/dl (32.0-36.0); MEAN CELL VOLUME 82.9 fl (80-96); MEAN PLT VOLUME 9.7 fl (7.5-11.1); MONO % 9.6 % (3.8-10.2); NEUT % 66.2 % (42.8-82.8); PLATELET COUNT 156 10^3/uL (134-434); RDW 14.7 % (11.6-15.6); WHITE BLOOD COUNT 6.9 K/mm3 (4.0-10.0)
[2022-11-27 09:50] LABS: POTASSIUM 4.7 mmol/L (3.5-5.1)
[2022-11-27] MEDS ORDERED: SPIRONOLACTONE 25 MG TABLET PO SCH (10:00)
[2022-11-27 10:18] LABS: ALBUMIN 3.2 g/dl (3.4-5.0); BLOOD UREA NITROGEN 26.5 mg/dL (7-18); CALCIUM 8.9 mg/dL (8.5-10.1)
[2022-11-27 10:20] LABS: CREATININE 1.1 mg/dL (0.55-1.3)
[2022-11-27 10:22] LABS: BILIRUBIN,TOTAL 0.4 mg/dL (0.2-1); TOT PROT 6.8 g/dl (6.4-8.2)
[2022-11-27] MEDS: ACETAMINOPHEN 1000 MG/100 ML BAG IVPB PRN ×2 (13:56→21:46)
[2022-11-27] MEDS: CYCLOBENZAPRINE HCL 10 MG TABLET (FP) PO PRN (13:56)
[2022-11-27] MEDS: MIDODRINE HCL 2.5 MG TABLET PO SCH ×2 (15:20→17:34)
[2022-11-27] MEDS: SPIRONOLACTONE 25 MG TABLET PO SCH (21:38)
[2022-11-28] MEDS: INSULIN SLIDING SCALE (NOVOLOG) 1 VIAL SQ SCH ×4 (06:18→21:40)
[2022-11-28] MEDS: LEVOTHYROXINE 100 MCG, LEVOTHYROXINE 75 MCG PO SCH (06:19)
[2022-11-28] MEDS: FUROSEMIDE 40 MG/4 ML INJECTABLE VIAL IVPUSH SCH ×2 (06:19→14:08)
[2022-11-28 08:29] LABS: BASO % 0.6 % (0-2.0); EOS % 2.5 % (0-4.5); HEMATOCRIT 36.4 % (32.4-45.2); LYMPH % 27.6 % (8-40); MCH 27.3 pg (25.7-33.7); MEAN CELL VOLUME 82.9 fl (80-96); MEAN PLT VOLUME 9.9 fl (7.5-11.1); MONO % 7.6 % (3.8-10.2); NEUT % 61.7 % (42.8-82.8); PLATELET COUNT 167 10^3/uL (134-434); RBC 4.39 M/mm3 (3.60-5.2); RDW 14.5 % (11.6-15.6); WHITE BLOOD COUNT 6.1 K/mm3 (4.0-10.0)
[2022-11-28 08:45] LABS: POTASSIUM 4.6 mmol/L (3.5-5.1)
[2022-11-28 08:49] LABS: ALBUMIN 3.2 g/dl (3.4-5.0)
[2022-11-28 08:50] LABS: CALCIUM 8.6 mg/dL (8.5-10.1)
[2022-11-28 08:51] LABS: BLOOD UREA NITROGEN 33.1 mg/dL (7-18)
[2022-11-28 08:52] LABS: CREATININE 1.3 mg/dL (0.55-1.3)
[2022-11-28 08:54] LABS: BILIRUBIN,TOTAL 0.4 mg/dL (0.2-1); TOT PROT 6.7 g/dl (6.4-8.2)
[2022-11-28] MEDS: SACUBITRIL/VALSARTAN 24 MG-26 MG TABLET PO SCH ×2 (09:46→09:54)
[2022-11-28] MEDS: PREGABALIN 100 MG CAPSULE PO SCH ×2 (09:47→21:39)
[2022-11-28] MEDS: ACETAMINOPHEN 1000 MG/100 ML BAG IVPB PRN ×2 (09:47→17:08)
[2022-11-28] MEDS: ASPIRIN COATED 81 MG TABLET.EC PO SCH (09:47)
[2022-11-28] MEDS: HEPARIN NA (PORCINE) 5,000 UNITS/ML 1ML VIAL SQ SCH ×2 (09:48→21:39)
[2022-11-28] MEDS: PANTOPRAZOLE 40 MG TABLET PO SCH (09:48)
[2022-11-28] MEDS: CYCLOBENZAPRINE HCL 10 MG TABLET (FP) PO PRN ×2 (09:48→17:07)
[2022-11-28] MEDS: SPIRONOLACTONE 25 MG TABLET PO SCH ×2 (09:48→21:54)
[2022-11-28] MEDS: metoPROLOL SUCCINATE 25 MG TAB.SR.24H (FP) PO SCH ×2 (09:48→09:52)
[2022-11-28] MEDS: COLLAGENASE CLOSTRIDIUM HIST. 30 GRAMS TUBE TP SCH (09:55)
[2022-11-28] MEDS: DULoxetine HCL 30 MG CAPSULE.DR PO SCH ×2 (10:04→21:39)
[2022-11-28] MEDS: MIDODRINE HCL 2.5 MG TABLET PO SCH ×3 (10:04→17:07)
[2022-11-28] MEDS ORDERED: INSULIN (NOVOLOG) ASPART 100 UNITS/ML 10ML VIAL ONE ×2 (11:24→17:02)
[2022-11-29] MEDS: ACETAMINOPHEN 1000 MG/100 ML BAG IVPB PRN ×3 (05:51→21:37)
[2022-11-29] MEDS: FUROSEMIDE 40 MG/4 ML INJECTABLE VIAL IVPUSH SCH ×2 (05:51→13:33)
[2022-11-29] MEDS: LEVOTHYROXINE 100 MCG, LEVOTHYROXINE 75 MCG PO SCH (06:02)
[2022-11-29] MEDS: INSULIN SLIDING SCALE (NOVOLOG) 1 VIAL SQ SCH ×4 (06:02→21:30)
[2022-11-29] MEDS: PREGABALIN 100 MG CAPSULE PO SCH ×2 (10:05→21:32)
[2022-11-29] MEDS: MIDODRINE HCL 2.5 MG TABLET PO SCH ×3 (10:05→17:13)
[2022-11-29] MEDS: ASPIRIN COATED 81 MG TABLET.EC PO SCH (10:05)
[2022-11-29] MEDS: metoPROLOL SUCCINATE 25 MG TAB.SR.24H (FP) PO SCH (10:05)
[2022-11-29] MEDS: SPIRONOLACTONE 25 MG TABLET PO SCH ×2 (10:05→21:32)
[2022-11-29] MEDS: DULoxetine HCL 30 MG CAPSULE.DR PO SCH ×2 (10:05→21:32)
[2022-11-29] MEDS: SACUBITRIL/VALSARTAN 24 MG-26 MG TABLET PO SCH ×3 (10:05→21:32)
[2022-11-29] MEDS: CYCLOBENZAPRINE HCL 10 MG TABLET (FP) PO PRN ×2 (10:05→21:34)
[2022-11-29] MEDS: HEPARIN NA (PORCINE) 5,000 UNITS/ML 1ML VIAL SQ SCH ×2 (10:05→21:32)
[2022-11-29] MEDS: PANTOPRAZOLE 40 MG TABLET PO SCH (10:05)
[2022-11-29] MEDS: COLLAGENASE CLOSTRIDIUM HIST. 30 GRAMS TUBE TP SCH (10:06)
[2022-11-29] MEDS ORDERED: INSULIN (NOVOLOG) ASPART 100 UNITS/ML 10ML VIAL ONE ×3 (11:24→21:25)
[2022-11-30] MEDS ORDERED: INSULIN (NOVOLOG) ASPART 100 UNITS/ML 10ML VIAL ONE ×5 (06:02→21:24)
[2022-11-30] MEDS: LEVOTHYROXINE 100 MCG, LEVOTHYROXINE 75 MCG PO SCH (06:17)
[2022-11-30] MEDS: FUROSEMIDE 40 MG/4 ML INJECTABLE VIAL IVPUSH SCH ×2 (06:17→13:01)
[2022-11-30] MEDS: INSULIN SLIDING SCALE (NOVOLOG) 1 VIAL SQ SCH ×4 (06:18→21:25)
[2022-11-30] MEDS: ACETAMINOPHEN 1000 MG/100 ML BAG IVPB PRN ×3 (06:25→20:12)
[2022-11-30 07:32] LABS: POTASSIUM 4.3 mmol/L (3.5-5.1)
[2022-11-30 07:34] LABS: CALCIUM 8.8 mg/dL (8.5-10.1)
[2022-11-30 07:35] LABS: ALBUMIN 3.1 g/dl (3.4-5.0); BLOOD UREA NITROGEN 27.6 mg/dL (7-18)
[2022-11-30 07:37] LABS: CREATININE 0.9 mg/dL (0.55-1.3)
[2022-11-30 07:39] LABS: BILIRUBIN,TOTAL 0.4 mg/dL (0.2-1); TOT PROT 6.6 g/dl (6.4-8.2)
[2022-11-30] MEDS: SACUBITRIL/VALSARTAN 24 MG-26 MG TABLET PO SCH ×2 (09:08→21:12)
[2022-11-30] MEDS: metoPROLOL SUCCINATE 25 MG TAB.SR.24H (FP) PO SCH (09:08)
[2022-11-30] MEDS: MIDODRINE HCL 2.5 MG TABLET PO SCH ×3 (09:08→17:31)
[2022-11-30] MEDS: PREGABALIN 100 MG CAPSULE PO SCH ×2 (09:11→21:12)
[2022-11-30] MEDS: ASPIRIN COATED 81 MG TABLET.EC PO SCH (09:11)
[2022-11-30] MEDS: DULoxetine HCL 30 MG CAPSULE.DR PO SCH ×2 (09:11→21:12)
[2022-11-30] MEDS: PANTOPRAZOLE 40 MG TABLET PO SCH (09:11)
[2022-11-30] MEDS: SPIRONOLACTONE 25 MG TABLET PO SCH ×2 (09:12→21:12)
[2022-11-30] MEDS: HEPARIN NA (PORCINE) 5,000 UNITS/ML 1ML VIAL SQ SCH ×2 (09:12→21:13)
[2022-11-30] MEDS: COLLAGENASE CLOSTRIDIUM HIST. 30 GRAMS TUBE TP SCH (09:13)
[2022-12-01] MEDS: ACETAMINOPHEN 1000 MG/100 ML BAG IVPB PRN ×2 (03:09→09:12)
[2022-12-01] MEDS: FUROSEMIDE 40 MG/4 ML INJECTABLE VIAL IVPUSH SCH ×2 (05:39→14:37)
[2022-12-01] MEDS ORDERED: INSULIN (NOVOLOG) ASPART 100 UNITS/ML 10ML VIAL ONE ×7 (05:44→21:48)
[2022-12-01] MEDS: LEVOTHYROXINE 100 MCG, LEVOTHYROXINE 75 MCG PO SCH (06:05)
[2022-12-01] MEDS: INSULIN SLIDING SCALE (NOVOLOG) 1 VIAL SQ SCH ×4 (06:05→21:47)
[2022-12-01] MEDS: PREGABALIN 100 MG CAPSULE PO SCH ×2 (09:10→21:46)
[2022-12-01] MEDS: ASPIRIN COATED 81 MG TABLET.EC PO SCH (09:10)
[2022-12-01] MEDS: SPIRONOLACTONE 25 MG TABLET PO SCH ×2 (09:10→21:46)
[2022-12-01] MEDS: PANTOPRAZOLE 40 MG TABLET PO SCH (09:10)
[2022-12-01] MEDS: SACUBITRIL/VALSARTAN 24 MG-26 MG TABLET PO SCH ×2 (09:11→21:46)
[2022-12-01] MEDS: metoPROLOL SUCCINATE 25 MG TAB.SR.24H (FP) PO SCH (09:11)
[2022-12-01] MEDS: HEPARIN NA (PORCINE) 5,000 UNITS/ML 1ML VIAL SQ SCH ×2 (09:12→21:49)
[2022-12-01] MEDS: MIDODRINE HCL 2.5 MG TABLET PO SCH ×3 (09:12→17:07)
[2022-12-01] MEDS: DULoxetine HCL 30 MG CAPSULE.DR PO SCH ×2 (09:12→21:51)
[2022-12-01] MEDS: INSULIN (LEVEMIR) 100 UNITS/ML UNITS SQ SCH ×2 (09:23→21:47)
[2022-12-01 09:24] LABS: POTASSIUM 4.3 mmol/L (3.5-5.1)
[2022-12-01 09:27] LABS: CALCIUM 8.8 mg/dL (8.5-10.1)
[2022-12-01 09:28] LABS: BLOOD UREA NITROGEN 25.9 mg/dL (7-18); MAGNESIUM 1.8 mg/dL (1.8-2.4)
[2022-12-01] MEDS ORDERED: INSULIN (LEVEMIR) 100 UNITS/ML UNITS SQ ONE (09:46)
[2022-12-01] MEDS: COLLAGENASE CLOSTRIDIUM HIST. 30 GRAMS TUBE TP SCH (11:04)
[2022-12-01] MEDS: CYCLOBENZAPRINE HCL 10 MG TABLET (FP) PO PRN ×2 (17:07→21:47)
[2022-12-01] MEDS: ACETAMINOPHEN 500 MG TABLET (FP) PO PRN (19:56)
[2022-12-02] MEDS ORDERED: INSULIN (NOVOLOG) ASPART 100 UNITS/ML 10ML VIAL ONE ×6 (05:58→21:43)
[2022-12-02] MEDS: FUROSEMIDE 40 MG/4 ML INJECTABLE VIAL IVPUSH SCH ×2 (06:09→13:17)
[2022-12-02] MEDS: LEVOTHYROXINE 100 MCG, LEVOTHYROXINE 75 MCG PO SCH (06:09)
[2022-12-02] MEDS: INSULIN SLIDING SCALE (NOVOLOG) 1 VIAL SQ SCH ×4 (06:10→21:50)
[2022-12-02] MEDS: ACETAMINOPHEN 500 MG TABLET (FP) PO PRN ×3 (06:12→21:53)
[2022-12-02] MEDS: MIDODRINE HCL 2.5 MG TABLET PO SCH ×3 (09:06→17:04)
[2022-12-02] MEDS: SACUBITRIL/VALSARTAN 24 MG-26 MG TABLET PO SCH ×2 (09:07→21:48)
[2022-12-02] MEDS: PREGABALIN 100 MG CAPSULE PO SCH ×2 (09:07→21:46)
[2022-12-02] MEDS: metoPROLOL SUCCINATE 25 MG TAB.SR.24H (FP) PO SCH (09:07)
[2022-12-02] MEDS: PANTOPRAZOLE 40 MG TABLET PO SCH (09:09)
[2022-12-02] MEDS: ASPIRIN COATED 81 MG TABLET.EC PO SCH (09:09)
[2022-12-02] MEDS: INSULIN (LEVEMIR) 100 UNITS/ML UNITS SQ SCH ×2 (09:09→21:50)
[2022-12-02] MEDS: SPIRONOLACTONE 25 MG TABLET PO SCH ×2 (09:09→21:47)
[2022-12-02] MEDS: DULoxetine HCL 30 MG CAPSULE.DR PO SCH ×2 (09:09→21:46)
[2022-12-02] MEDS: HEPARIN NA (PORCINE) 5,000 UNITS/ML 1ML VIAL SQ SCH ×2 (09:09→21:49)
[2022-12-02] MEDS: COLLAGENASE CLOSTRIDIUM HIST. 30 GRAMS TUBE TP SCH (09:10)
[2022-12-02] MEDS ORDERED: INSULIN (LEVEMIR) 100 UNITS/ML UNITS SQ ONE (09:27)
[2022-12-02] MEDS: clonazePAM 2 MG TABLET PO PRN ×2 (12:47→21:48)
[2022-12-02] MEDS: CYCLOBENZAPRINE HCL 10 MG TABLET (FP) PO SCH ×2 (13:17→22:54)
[2022-12-03] MEDS ORDERED: INSULIN (NOVOLOG) ASPART 100 UNITS/ML 10ML VIAL ONE ×3 (05:58→21:56)
[2022-12-03] MEDS: LEVOTHYROXINE 100 MCG, LEVOTHYROXINE 75 MCG PO SCH (06:08)
[2022-12-03] MEDS: FUROSEMIDE 40 MG/4 ML INJECTABLE VIAL IVPUSH SCH ×2 (06:08→14:02)
[2022-12-03] MEDS: INSULIN SLIDING SCALE (NOVOLOG) 1 VIAL SQ SCH ×4 (06:09→21:56)
[2022-12-03] MEDS: CYCLOBENZAPRINE HCL 10 MG TABLET (FP) PO SCH ×3 (07:12→21:49)
[2022-12-03] MEDS: metoPROLOL SUCCINATE 25 MG TAB.SR.24H (FP) PO SCH (09:42)
[2022-12-03] MEDS: SACUBITRIL/VALSARTAN 24 MG-26 MG TABLET PO SCH ×2 (09:42→21:49)
[2022-12-03] MEDS: DULoxetine HCL 30 MG CAPSULE.DR PO SCH ×2 (09:42→21:48)
[2022-12-03] MEDS: MIDODRINE HCL 2.5 MG TABLET PO SCH ×3 (09:42→17:18)
[2022-12-03] MEDS: SPIRONOLACTONE 25 MG TABLET PO SCH ×2 (09:43→21:49)
[2022-12-03] MEDS: PANTOPRAZOLE 40 MG TABLET PO SCH (09:43)
[2022-12-03] MEDS: ASPIRIN COATED 81 MG TABLET.EC PO SCH (09:43)
[2022-12-03] MEDS: INSULIN (LEVEMIR) 100 UNITS/ML UNITS SQ SCH ×2 (09:45→21:49)
[2022-12-03] MEDS: clonazePAM 2 MG TABLET PO PRN ×2 (09:53→21:51)
[2022-12-03] MEDS: COLLAGENASE CLOSTRIDIUM HIST. 30 GRAMS TUBE TP SCH (11:23)
[2022-12-03] MEDS: ACETAMINOPHEN 500 MG TABLET (FP) PO PRN (14:02)
[2022-12-03] MEDS: PREGABALIN 100 MG CAPSULE PO SCH (21:48)
[2022-12-04] MEDS: FUROSEMIDE 40 MG/4 ML INJECTABLE VIAL IVPUSH SCH ×2 (05:50→14:07)
[2022-12-04] MEDS: ACETAMINOPHEN 500 MG TABLET (FP) PO PRN (05:53)
[2022-12-04] MEDS: LEVOTHYROXINE 100 MCG, LEVOTHYROXINE 75 MCG PO SCH (06:11)
[2022-12-04] MEDS: CYCLOBENZAPRINE HCL 10 MG TABLET (FP) PO SCH ×3 (06:11→22:07)
[2022-12-04] MEDS ORDERED: INSULIN (LEVEMIR) 100 UNITS/ML UNITS SQ ONE (06:15)
[2022-12-04] MEDS ORDERED: INSULIN (NOVOLOG) ASPART 100 UNITS/ML 10ML VIAL ONE ×4 (06:16→21:58)
[2022-12-04] MEDS: INSULIN (LEVEMIR) 100 UNITS/ML UNITS SQ SCH ×2 (06:21→22:07)
[2022-12-04] MEDS: INSULIN SLIDING SCALE (NOVOLOG) 1 VIAL SQ SCH ×4 (06:21→22:07)
[2022-12-04] MEDS: DULoxetine HCL 30 MG CAPSULE.DR PO SCH ×2 (09:50→22:06)
[2022-12-04] MEDS: ASPIRIN COATED 81 MG TABLET.EC PO SCH (09:50)
[2022-12-04] MEDS: MIDODRINE HCL 2.5 MG TABLET PO SCH ×3 (09:50→17:23)
[2022-12-04] MEDS: PREGABALIN 100 MG CAPSULE PO SCH ×2 (09:51→22:07)
[2022-12-04] MEDS: PANTOPRAZOLE 40 MG TABLET PO SCH (09:51)
[2022-12-04] MEDS: clonazePAM 2 MG TABLET PO PRN ×2 (09:55→22:08)
[2022-12-04] MEDS: metoPROLOL SUCCINATE 25 MG TAB.SR.24H (FP) PO SCH (11:25)
[2022-12-04] MEDS: SPIRONOLACTONE 25 MG TABLET PO SCH ×2 (11:25→22:06)
[2022-12-04] MEDS: SACUBITRIL/VALSARTAN 24 MG-26 MG TABLET PO SCH ×2 (11:26→22:06)
[2022-12-04] MEDS: COLLAGENASE CLOSTRIDIUM HIST. 30 GRAMS TUBE TP SCH (11:27)
[2022-12-05] MEDS ORDERED: INSULIN (NOVOLOG) ASPART 100 UNITS/ML 10ML VIAL ONE ×4 (06:01→22:17)
[2022-12-05] MEDS: FUROSEMIDE 40 MG/4 ML INJECTABLE VIAL IVPUSH SCH ×2 (06:03→15:45)
[2022-12-05] MEDS: CYCLOBENZAPRINE HCL 10 MG TABLET (FP) PO SCH ×3 (06:03→21:19)
[2022-12-05] MEDS: INSULIN (LEVEMIR) 100 UNITS/ML UNITS SQ SCH ×2 (06:04→21:23)
[2022-12-05] MEDS: INSULIN SLIDING SCALE (NOVOLOG) 1 VIAL SQ SCH ×4 (06:04→22:20)
[2022-12-05] MEDS: LEVOTHYROXINE 100 MCG, LEVOTHYROXINE 75 MCG PO SCH (06:04)
[2022-12-05] MEDS: ACETAMINOPHEN 500 MG TABLET (FP) PO PRN ×3 (06:05→21:20)
[2022-12-05 08:57] LABS: POTASSIUM 4.5 mmol/L (3.5-5.1)
[2022-12-05 08:59] LABS: CALCIUM 8.5 mg/dL (8.5-10.1)
[2022-12-05 09:00] LABS: BLOOD UREA NITROGEN 23.7 mg/dL (7-18); MAGNESIUM 1.8 mg/dL (1.8-2.4)
[2022-12-05 09:03] LABS: CREATININE 0.8 mg/dL (0.55-1.3)
[2022-12-05] MEDS: clonazePAM 2 MG TABLET PO PRN ×2 (09:59→21:19)
[2022-12-05] MEDS: metoPROLOL SUCCINATE 25 MG TAB.SR.24H (FP) PO SCH (10:00)
[2022-12-05] MEDS: DULoxetine HCL 30 MG CAPSULE.DR PO SCH ×2 (10:00→21:20)
[2022-12-05] MEDS: PANTOPRAZOLE 40 MG TABLET PO SCH (10:03)
[2022-12-05] MEDS: SPIRONOLACTONE 25 MG TABLET PO SCH ×2 (10:03→21:19)
[2022-12-05] MEDS: MIDODRINE HCL 2.5 MG TABLET PO SCH ×3 (10:03→17:18)
[2022-12-05] MEDS: PREGABALIN 100 MG CAPSULE PO SCH ×2 (10:03→21:19)
[2022-12-05] MEDS: SACUBITRIL/VALSARTAN 24 MG-26 MG TABLET PO SCH ×2 (10:03→21:19)
[2022-12-05] MEDS: ASPIRIN COATED 81 MG TABLET.EC PO SCH (10:04)
[2022-12-05] MEDS: COLLAGENASE CLOSTRIDIUM HIST. 30 GRAMS TUBE TP SCH (10:06)
[2022-12-06] MEDS: INSULIN (LEVEMIR) 100 UNITS/ML UNITS SQ SCH (06:28)
[2022-12-06] MEDS: LEVOTHYROXINE 100 MCG, LEVOTHYROXINE 75 MCG PO SCH (06:29)
[2022-12-06] MEDS: FUROSEMIDE 40 MG/4 ML INJECTABLE VIAL IVPUSH SCH (06:29)
[2022-12-06] MEDS: CYCLOBENZAPRINE HCL 10 MG TABLET (FP) PO SCH ×2 (06:29→13:25)
[2022-12-06] MEDS ORDERED: INSULIN (NOVOLOG) ASPART 100 UNITS/ML 10ML VIAL ONE ×2 (06:39→12:02)
[2022-12-06] MEDS: INSULIN SLIDING SCALE (NOVOLOG) 1 VIAL SQ SCH ×2 (06:59→12:03)
[2022-12-06 09:37] VITALS: RESP 18
[2022-12-06] MEDS: metoPROLOL SUCCINATE 25 MG TAB.SR.24H (FP) PO SCH (09:57)
[2022-12-06] MEDS: PREGABALIN 100 MG CAPSULE PO SCH (09:58)
[2022-12-06] MEDS: ACETAMINOPHEN 500 MG TABLET (FP) PO PRN (09:58)
[2022-12-06] MEDS: SACUBITRIL/VALSARTAN 24 MG-26 MG TABLET PO SCH (09:58)
[2022-12-06] MEDS: PANTOPRAZOLE 40 MG TABLET PO SCH (09:58)
[2022-12-06] MEDS: MIDODRINE HCL 2.5 MG TABLET PO SCH ×2 (09:58→13:25)
[2022-12-06] MEDS: ASPIRIN COATED 81 MG TABLET.EC PO SCH (09:58)
[2022-12-06] MEDS: DULoxetine HCL 30 MG CAPSULE.DR PO SCH (09:58)
[2022-12-06] MEDS: clonazePAM 2 MG TABLET PO PRN (09:58)
[2022-12-06] MEDS: SPIRONOLACTONE 25 MG TABLET PO SCH (09:58)
[2022-12-06] MEDS: COLLAGENASE CLOSTRIDIUM HIST. 30 GRAMS TUBE TP SCH (10:34)
[2022-12-06 10:56] LABS: HEMATOCRIT 39.4 % (32.4-45.2); HEMOGLOBIN 12.5 GM/dL (10.7-15.3); MCH 27.4 pg (25.7-33.7); MCHC 31.7 g/dl (32.0-36.0); MEAN CELL VOLUME 86.4 fl (80-96); MEAN PLT VOLUME 10.2 fl (7.5-11.1); PLATELET COUNT 173 10^3/uL (134-434); RBC 4.57 M/mm3 (3.60-5.2); RDW 14.7 % (11.6-15.6)
[2022-12-06 15:09] VITALS: BP 99/53; PULSE 79; TEMP 98.6
[2022-12-07] MEDS ORDERED: FUROSEMIDE 40 MG TABLET (FP) PO SCH (10:00)
== END 2022-12-06 15:56 | DRG 194 ==
LOC: JER 17:11 → JERBED 18:07 → J4W 22:57
PROVIDERS: ADMIT Internal Medicine; ATTEND Family Medicine
DX: I11.0 Hypertensive heart disease with heart failure (principal); I50.23 Acute on chronic systolic (congestive) heart failure; M79.7 Fibromyalgia; J45.909 Unspecified asthma, uncomplicated; Z95.810 Presence of automatic (implantable) cardiac defibrillator; E03.9 Hypothyroidism, unspecified; E83.42 Hypomagnesemia; I42.8 Other cardiomyopathies; G47.33 Obstructive sleep apnea (adult) (pediatric); E66.01 Morbid (severe) obesity due to excess calories; E11.42 Type 2 diabetes mellitus with diabetic polyneuropathy; Z68.43 Body mass index [BMI] 50.0-59.9, adult; F32.A Depression, unspecified; Z79.4 Long term (current) use of insulin; Q28.8 Other specified congenital malformations of circulatory system
CPT/HCPCS: 0241U-QW; 36415; 71045-TC-FY; 71260-TC; 80048; 80053; 82803; 82962; 83735; 83880; 84484; 84703; 85025; 85027; 85379; 85610; 85730; 93005; 93010; 94660; 94761; 97116-GP; 97162-GP; 99285-25; J1644; Q9967

== ENCOUNTER 2023-02-07 15:10 | Inpatient (IN) | payer OTHER ==
[2023-02-07 15:16] VITALS: BMI 57.4
[2023-02-07] MEDS ORDERED: ALBUTEROL SO4 2.5/IPRATROPIUM 0.5 INH SOL 3 ML VIAL.NEB. NEB ONE (16:41)
[2023-02-07] MEDS: ALBUTEROL SO4 2.5/IPRATROPIUM 0.5 INH SOL 3 ML VIAL.NEB. NEB SCH ×4 (16:45→17:35)
[2023-02-07 17:55] LABS: BASO % 0.1 % (0-2.0); EOS % 1.2 % (0-4.5); HEMATOCRIT 38.5 % (32.4-45.2); HEMOGLOBIN 12.5 GM/dL (10.7-15.3); LYMPH % 12.7 % (8-40); MCH 27.5 pg (25.7-33.7); MCHC 32.5 g/dl (32.0-36.0); MEAN CELL VOLUME 84.5 fl (80-96); MEAN PLT VOLUME 9.7 fl (7.5-11.1); PLATELET COUNT 190 10^3/uL (134-434); RBC 4.55 M/mm3 (3.60-5.2); RDW 14.8 % (11.6-15.6); WHITE BLOOD COUNT 8.8 K/mm3 (4.0-10.0)
[2023-02-07 18:26] LABS: POTASSIUM 4.1 mmol/L (3.5-5.1)
[2023-02-07 18:30] LABS: CALCIUM 8.4 mg/dL (8.5-10.1)
[2023-02-07 18:31] LABS: ALBUMIN 3.4 g/dl (3.4-5.0); BLOOD UREA NITROGEN 14.8 mg/dL (7-18); MAGNESIUM 1.8 mg/dL (1.8-2.4)
[2023-02-07 18:33] LABS: CREATININE 0.9 mg/dL (0.55-1.3)
[2023-02-07 18:35] LABS: BILIRUBIN,TOTAL 0.6 mg/dL (0.2-1); TOT PROT 7.1 g/dl (6.4-8.2)
[2023-02-07 18:38] LABS: N-TERMINAL BNP 1308.5 pg/ml (5-125)
[2023-02-07] MEDS ORDERED: FUROSEMIDE 40 MG/4 ML INJECTABLE VIAL IVPUSH ONE (18:40)
[2023-02-07] MEDS ORDERED: ASPIRIN 81 MG CHEWABLE TABLETS PO ONE (18:46)
[2023-02-07] MEDS ORDERED: ACETAMINOPHEN 500 MG TABLET (FP) PO ONE (19:38)
[2023-02-07] MEDS ORDERED: ASPIRIN 81 MG CHEWABLE TABLETS ONE (19:40)
[2023-02-07] MEDS ORDERED: ACETAMINOPHEN 325 MG TABLET (FP) ONE (19:40)
[2023-02-07] MEDS ORDERED: FUROSEMIDE 40 MG/4 ML INJECTABLE VIAL ONE (19:41)
[2023-02-07] MEDS ORDERED: VANCOMYCIN ORAL SOLUTION 125 MG/2.5 ML PO ONE (20:01)
[2023-02-07] MEDS ORDERED: ALBUTEROL SO4 2.5/IPRATROPIUM 0.5 INH SOL 3 ML VIAL.NEB. NEB PRN (22:05)
[2023-02-07] MEDS ORDERED: clonazePAM 2 MG TABLET PO PRN (22:05)
[2023-02-07] MEDS ORDERED: metoPROLOL SUCCINATE 25 MG TAB.SR.24H (FP) PO ONE (23:52)
[2023-02-07] MEDS ORDERED: DULoxetine HCL 30 MG CAPSULE.DR PO ONE (23:52)
[2023-02-07] MEDS ORDERED: CYCLOBENZAPRINE HCL 10 MG TABLET (FP) ONE (23:52)
[2023-02-07] MEDS ORDERED: HEPARIN NA (PORCINE) 5,000 UNITS/ML 1ML VIAL ONE (23:53)
[2023-02-07] MEDS: DULoxetine HCL 30 MG CAPSULE.DR PO SCH (23:59)
[2023-02-07] MEDS: metoPROLOL SUCCINATE 25 MG TAB.SR.24H (FP) PO SCH (23:59)
[2023-02-07] MEDS: CYCLOBENZAPRINE HCL 10 MG TABLET (FP) PO SCH (23:59)
[2023-02-07] MEDS: HEPARIN NA (PORCINE) 5,000 UNITS/ML 1ML VIAL SQ SCH (23:59)
[2023-02-08] MEDS ORDERED: FUROSEMIDE 40 MG/4 ML INJECTABLE VIAL IVPUSH ONE (01:30)
[2023-02-08 01:42] LABS: EPI CELLS 14 /uL (0-25.1); HYALINE CASTS 3 /uL (0-3.1); URINE APPEARANCE CLEAR; URINE BACTERIA 55 /uL (0-1359); URINE BILIRUBIN NEGATIVE (NEGATIVE); URINE COLOR YELLOW; URINE GLUCOSE (UA) NEGATIVE (NEGATIVE); URINE KETONE NEGATIVE (NEGATIVE); URINE LEUK ESTERASE NEGATIVE (NEGATIVE); URINE NITRITE NEGATIVE (NEGATIVE); URINE PROTEIN NEGATIVE (NEGATIVE); URINE RBC 68 /uL (0-23.9); URINE UROBILINOGEN 0.2 mg/dL (0.2-1.0); URINE WBC 5 /uL (0-25.8)
[2023-02-08] MEDS ORDERED: CYCLOBENZAPRINE HCL 10 MG TABLET (FP) ONE ×2 (05:33→15:05)
[2023-02-08] MEDS ORDERED: LEVOTHYROXINE NA 100 MCG TABLET (FP) ONE (05:36)
[2023-02-08] MEDS ORDERED: LEVOTHYROXINE NA 25 MCG TABLET (FP) ONE (05:36)
[2023-02-08] MEDS ORDERED: LEVOTHYROXINE NA 50 MCG TABLET (FP) ONE (05:40)
[2023-02-08] MEDS: CYCLOBENZAPRINE HCL 10 MG TABLET (FP) PO SCH ×3 (05:42→23:13)
[2023-02-08] MEDS: INSULIN SLIDING SCALE (NOVOLOG) 1 VIAL SQ SCH ×4 (06:16→23:14)
[2023-02-08] MEDS ORDERED: LEVOTHYROXINE NA 75 MCG TABLET (FP) PO SCH (07:00)
[2023-02-08] MEDS ORDERED: LEVOTHYROXINE 75 MCG, LEVOTHYROXINE 100 MCG PO SCH (07:00)
[2023-02-08] MEDS: VANCOMYCIN ORAL SOLUTION 125 MG/2.5 ML PO SCH ×4 (07:25→23:16)
[2023-02-08 07:26] LABS: BASO % 0.2 % (0-2.0); EOS % 2.5 % (0-4.5); HEMATOCRIT 36.8 % (32.4-45.2); HEMOGLOBIN 11.7 GM/dL (10.7-15.3); LYMPH % 19.6 % (8-40); MCH 27.4 pg (25.7-33.7); MCHC 31.8 g/dl (32.0-36.0); MEAN CELL VOLUME 86.1 fl (80-96); MEAN PLT VOLUME 9.4 fl (7.5-11.1); MONO % 6.8 % (3.8-10.2); NEUT % 70.9 % (42.8-82.8); PLATELET COUNT 172 10^3/uL (134-434); RBC 4.27 M/mm3 (3.60-5.2); RDW 14.2 % (11.6-15.6); WHITE BLOOD COUNT 6.6 K/mm3 (4.0-10.0)
[2023-02-08 07:35] LABS: INR 1.22 (0.83-1.09); PROTHROMBIN TIME (PATIENT) 14.1 SEC (9.7-13.0)
[2023-02-08 07:37] LABS: ACTIVATED PTT 32.9 SECONDS (25.2-36.5)
[2023-02-08 07:45] LABS: BLOOD UREA NITROGEN 13.5 mg/dL (7-18); MAGNESIUM 1.7 mg/dL (1.8-2.4)
[2023-02-08 07:48] LABS: PHOSPHOROUS 2.7 mg/dL (2.5-4.9)
[2023-02-08] MEDS ORDERED: ASPIRIN COATED 81 MG TABLET.EC ONE (09:25)
[2023-02-08] MEDS ORDERED: metoPROLOL SUCCINATE 25 MG TAB.SR.24H (FP) PO ONE (09:26)
[2023-02-08] MEDS ORDERED: PREGABALIN 100 MG CAPSULE ONE (09:26)
[2023-02-08] MEDS ORDERED: PANTOPRAZOLE 20 MG TABLET PO ONE (09:26)
[2023-02-08] MEDS ORDERED: MIDODRINE HCL 5 MG TABLET ONE (09:27)
[2023-02-08] MEDS ORDERED: SPIRONOLACTONE 25 MG TABLET ONE (09:27)
[2023-02-08] MEDS ORDERED: DULoxetine HCL 30 MG CAPSULE.DR PO ONE (09:27)
[2023-02-08] MEDS ORDERED: HEPARIN NA (PORCINE) 5,000 UNITS/ML 1ML VIAL ONE (09:28)
[2023-02-08] MEDS: ASPIRIN COATED 81 MG TABLET.EC PO SCH (09:40)
[2023-02-08] MEDS: SACUBITRIL/VALSARTAN 24 MG-26 MG TABLET PO SCH ×2 (09:40→23:14)
[2023-02-08] MEDS: SPIRONOLACTONE 25 MG TABLET PO SCH ×2 (09:40→23:13)
[2023-02-08] MEDS: HEPARIN NA (PORCINE) 5,000 UNITS/ML 1ML VIAL SQ SCH ×2 (09:41→23:12)
[2023-02-08] MEDS: FUROSEMIDE 40 MG TABLET (FP) PO SCH (09:41)
[2023-02-08] MEDS: MIDODRINE HCL 2.5 MG TABLET PO SCH ×3 (09:41→20:00)
[2023-02-08] MEDS: PREGABALIN 100 MG CAPSULE PO SCH ×2 (09:41→23:13)
[2023-02-08] MEDS: metoPROLOL SUCCINATE 25 MG TAB.SR.24H (FP) PO SCH ×2 (09:42→23:14)
[2023-02-08] MEDS: PANTOPRAZOLE 40 MG TABLET PO SCH (09:42)
[2023-02-08] MEDS ORDERED: FUROSEMIDE 40 MG TABLET (FP) ONE (09:45)
[2023-02-08] MEDS: DULoxetine HCL 30 MG CAPSULE.DR PO SCH ×2 (10:03→23:14)
[2023-02-08] MEDS ORDERED: VANCOMYCIN ORAL SOLUTION 125 MG/2.5 ML PO ONE (20:01)
[2023-02-08] MEDS ORDERED: MAGNESIUM SULFATE IN WATER 2 GM/50 ML IVPB IVPB ONE (23:06)
[2023-02-09] MEDS: ACETAMINOPHEN 1000 MG/100 ML BAG IVPB PRN ×2 (06:37→15:10)
[2023-02-09] MEDS: VANCOMYCIN ORAL SOLUTION 125 MG/2.5 ML PO SCH ×3 (06:38→18:22)
[2023-02-09] MEDS ORDERED: INSULIN SLIDING SCALE (NOVOLOG) 1 VIAL SQ ONE (06:39)
[2023-02-09] MEDS: CYCLOBENZAPRINE HCL 10 MG TABLET (FP) PO SCH ×3 (06:40→22:38)
[2023-02-09] MEDS: LEVOTHYROXINE NA 200 MCG TABLET PO SCH (06:40)
[2023-02-09] MEDS: INSULIN SLIDING SCALE (NOVOLOG) 1 VIAL SQ SCH ×4 (06:40→22:39)
[2023-02-09] MEDS: metoPROLOL SUCCINATE 25 MG TAB.SR.24H (FP) PO SCH ×2 (10:45→22:39)
[2023-02-09] MEDS: FUROSEMIDE 40 MG TABLET (FP) PO SCH (10:45)
[2023-02-09] MEDS: SPIRONOLACTONE 25 MG TABLET PO SCH ×2 (10:45→22:38)
[2023-02-09] MEDS: ASPIRIN COATED 81 MG TABLET.EC PO SCH (10:45)
[2023-02-09] MEDS: PREGABALIN 100 MG CAPSULE PO SCH ×2 (10:45→22:39)
[2023-02-09] MEDS: DULoxetine HCL 30 MG CAPSULE.DR PO SCH ×2 (10:46→22:38)
[2023-02-09] MEDS: PANTOPRAZOLE 40 MG TABLET PO SCH (10:46)
[2023-02-09] MEDS: HEPARIN NA (PORCINE) 5,000 UNITS/ML 1ML VIAL SQ SCH ×2 (10:46→22:39)
[2023-02-09] MEDS: SACUBITRIL/VALSARTAN 24 MG-26 MG TABLET PO SCH ×2 (10:46→22:38)
[2023-02-09] MEDS: MIDODRINE HCL 2.5 MG TABLET PO SCH ×3 (10:47→18:23)
[2023-02-09] MEDS: TOLTERODINE TARTRATE LA 2 MG CAP.SR.24H PO SCH (13:10)
[2023-02-09] MEDS ORDERED: clonazePAM 0.5 MG TABLET PO PRN (23:51)
[2023-02-10] MEDS: VANCOMYCIN ORAL SOLUTION 125 MG/2.5 ML PO SCH ×4 (00:56→17:31)
[2023-02-10] MEDS: ACETAMINOPHEN 1000 MG/100 ML BAG IVPB PRN ×2 (01:14→17:29)
[2023-02-10] MEDS ORDERED: MELATONIN 5 MG TABLETS PO PRN (01:22)
[2023-02-10] MEDS: CYCLOBENZAPRINE HCL 10 MG TABLET (FP) PO SCH ×3 (06:25→22:44)
[2023-02-10] MEDS: INSULIN SLIDING SCALE (NOVOLOG) 1 VIAL SQ SCH ×4 (06:26→22:49)
[2023-02-10] MEDS: LEVOTHYROXINE NA 200 MCG TABLET PO SCH (06:27)
[2023-02-10] MEDS: traMADol HCL 50 MG TABLET PO PRN (10:05)
[2023-02-10] MEDS: DULoxetine HCL 30 MG CAPSULE.DR PO SCH ×2 (10:06→22:44)
[2023-02-10] MEDS: metoPROLOL SUCCINATE 25 MG TAB.SR.24H (FP) PO SCH ×2 (10:07→22:43)
[2023-02-10] MEDS: SPIRONOLACTONE 25 MG TABLET PO SCH ×2 (10:07→22:43)
[2023-02-10] MEDS: ASPIRIN COATED 81 MG TABLET.EC PO SCH (10:07)
[2023-02-10] MEDS: PANTOPRAZOLE 40 MG TABLET PO SCH (10:07)
[2023-02-10] MEDS: FUROSEMIDE 40 MG/4 ML INJECTABLE VIAL IVPUSH SCH (10:07)
[2023-02-10] MEDS: PREGABALIN 100 MG CAPSULE PO SCH ×2 (10:07→22:43)
[2023-02-10] MEDS: SACUBITRIL/VALSARTAN 24 MG-26 MG TABLET PO SCH ×2 (10:07→22:43)
[2023-02-10] MEDS: HEPARIN NA (PORCINE) 5,000 UNITS/ML 1ML VIAL SQ SCH ×2 (10:08→22:44)
[2023-02-10] MEDS: MIDODRINE HCL 2.5 MG TABLET PO SCH ×3 (10:09→17:30)
[2023-02-10] MEDS: TOLTERODINE TARTRATE LA 2 MG CAP.SR.24H PO SCH (10:10)
[2023-02-11] MEDS: VANCOMYCIN ORAL SOLUTION 125 MG/2.5 ML PO SCH ×4 (01:11→17:46)
[2023-02-11] MEDS: INSULIN SLIDING SCALE (NOVOLOG) 1 VIAL SQ SCH ×4 (06:12→22:18)
[2023-02-11] MEDS: CYCLOBENZAPRINE HCL 10 MG TABLET (FP) PO SCH ×3 (06:12→22:17)
[2023-02-11] MEDS: LEVOTHYROXINE NA 200 MCG TABLET PO SCH (06:12)
[2023-02-11] MEDS: MIDODRINE HCL 2.5 MG TABLET PO SCH ×3 (09:09→17:45)
[2023-02-11] MEDS: traMADol HCL 50 MG TABLET PO PRN ×2 (09:09→17:45)
[2023-02-11] MEDS: HEPARIN NA (PORCINE) 5,000 UNITS/ML 1ML VIAL SQ SCH ×2 (09:10→22:17)
[2023-02-11] MEDS: FUROSEMIDE 40 MG/4 ML INJECTABLE VIAL IVPUSH SCH (09:10)
[2023-02-11] MEDS: TOLTERODINE TARTRATE LA 2 MG CAP.SR.24H PO SCH (09:10)
[2023-02-11] MEDS: PANTOPRAZOLE 40 MG TABLET PO SCH (09:10)
[2023-02-11] MEDS: ASPIRIN COATED 81 MG TABLET.EC PO SCH (09:10)
[2023-02-11] MEDS: DULoxetine HCL 30 MG CAPSULE.DR PO SCH ×2 (09:10→22:17)
[2023-02-11] MEDS: SPIRONOLACTONE 25 MG TABLET PO SCH ×2 (09:10→22:17)
[2023-02-11] MEDS: PREGABALIN 100 MG CAPSULE PO SCH ×2 (09:10→22:17)
[2023-02-11] MEDS: metoPROLOL SUCCINATE 25 MG TAB.SR.24H (FP) PO SCH ×2 (17:45→22:18)
[2023-02-11] MEDS: SACUBITRIL/VALSARTAN 24 MG-26 MG TABLET PO SCH ×2 (17:45→22:19)
[2023-02-12] MEDS: VANCOMYCIN ORAL SOLUTION 125 MG/2.5 ML PO SCH ×5 (01:02→23:40)
[2023-02-12] MEDS: CYCLOBENZAPRINE HCL 10 MG TABLET (FP) PO SCH ×3 (06:04→21:53)
[2023-02-12] MEDS: LEVOTHYROXINE NA 200 MCG TABLET PO SCH (06:04)
[2023-02-12] MEDS: INSULIN SLIDING SCALE (NOVOLOG) 1 VIAL SQ SCH ×4 (06:07→21:57)
[2023-02-12] MEDS: traMADol HCL 50 MG TABLET PO PRN (10:11)
[2023-02-12] MEDS: FUROSEMIDE 40 MG/4 ML INJECTABLE VIAL IVPUSH SCH (10:11)
[2023-02-12] MEDS: SACUBITRIL/VALSARTAN 24 MG-26 MG TABLET PO SCH ×2 (10:12→21:54)
[2023-02-12] MEDS: ASPIRIN COATED 81 MG TABLET.EC PO SCH (10:12)
[2023-02-12] MEDS: PANTOPRAZOLE 40 MG TABLET PO SCH (10:12)
[2023-02-12] MEDS: metoPROLOL SUCCINATE 25 MG TAB.SR.24H (FP) PO SCH ×2 (10:12→21:53)
[2023-02-12] MEDS: DULoxetine HCL 30 MG CAPSULE.DR PO SCH ×2 (10:12→21:53)
[2023-02-12] MEDS: MIDODRINE HCL 2.5 MG TABLET PO SCH ×3 (10:12→17:45)
[2023-02-12] MEDS: HEPARIN NA (PORCINE) 5,000 UNITS/ML 1ML VIAL SQ SCH ×2 (10:12→21:56)
[2023-02-12] MEDS: TOLTERODINE TARTRATE LA 2 MG CAP.SR.24H PO SCH (10:12)
[2023-02-12] MEDS: PREGABALIN 100 MG CAPSULE PO SCH ×2 (10:12→21:52)
[2023-02-12] MEDS: SPIRONOLACTONE 25 MG TABLET PO SCH ×2 (10:12→21:53)
[2023-02-13] MEDS: CYCLOBENZAPRINE HCL 10 MG TABLET (FP) PO SCH ×3 (06:30→21:10)
[2023-02-13] MEDS: VANCOMYCIN ORAL SOLUTION 125 MG/2.5 ML PO SCH ×4 (06:30→23:17)
[2023-02-13] MEDS: LEVOTHYROXINE NA 200 MCG TABLET PO SCH (06:30)
[2023-02-13] MEDS: traMADol HCL 50 MG TABLET PO PRN (06:30)
[2023-02-13] MEDS: INSULIN SLIDING SCALE (NOVOLOG) 1 VIAL SQ SCH ×4 (06:32→21:12)
[2023-02-13] MEDS: PREGABALIN 100 MG CAPSULE PO SCH ×2 (09:48→21:10)
[2023-02-13] MEDS: SPIRONOLACTONE 25 MG TABLET PO SCH ×2 (09:48→21:11)
[2023-02-13] MEDS: DULoxetine HCL 30 MG CAPSULE.DR PO SCH ×2 (09:48→21:10)
[2023-02-13] MEDS: TOLTERODINE TARTRATE LA 2 MG CAP.SR.24H PO SCH (09:49)
[2023-02-13] MEDS: FUROSEMIDE 40 MG/4 ML INJECTABLE VIAL IVPUSH SCH (09:49)
[2023-02-13] MEDS: PANTOPRAZOLE 40 MG TABLET PO SCH (09:49)
[2023-02-13] MEDS: HEPARIN NA (PORCINE) 5,000 UNITS/ML 1ML VIAL SQ SCH ×2 (09:49→21:11)
[2023-02-13] MEDS: SACUBITRIL/VALSARTAN 24 MG-26 MG TABLET PO SCH ×2 (09:49→21:10)
[2023-02-13] MEDS: ASPIRIN COATED 81 MG TABLET.EC PO SCH (09:49)
[2023-02-13] MEDS: metoPROLOL SUCCINATE 25 MG TAB.SR.24H (FP) PO SCH ×2 (09:49→21:11)
[2023-02-13] MEDS: MIDODRINE HCL 2.5 MG TABLET PO SCH ×3 (09:50→18:12)
[2023-02-13] MEDS ORDERED: ALBUTEROL SO4 0.083% IH SOL 2.5 MG/3 ML VIAL.NEB. NEB PRN (15:17)
[2023-02-13] MEDS ORDERED: ACETAMINOPHEN 500 MG TABLET (FP) PO ONE (20:50)
[2023-02-14 01:02] VITALS: RESP 18
[2023-02-14] MEDS: CYCLOBENZAPRINE HCL 10 MG TABLET (FP) PO SCH ×2 (06:08→14:29)
[2023-02-14] MEDS: VANCOMYCIN ORAL SOLUTION 125 MG/2.5 ML PO SCH ×2 (06:08→11:52)
[2023-02-14] MEDS: INSULIN SLIDING SCALE (NOVOLOG) 1 VIAL SQ SCH ×2 (06:10→11:52)
[2023-02-14] MEDS: LEVOTHYROXINE NA 200 MCG TABLET PO SCH (06:13)
[2023-02-14] MEDS ORDERED: traMADol HCL 50 MG TABLET PO PRN (09:33)
[2023-02-14] MEDS: DULoxetine HCL 30 MG CAPSULE.DR PO SCH (10:06)
[2023-02-14] MEDS: FUROSEMIDE 40 MG/4 ML INJECTABLE VIAL IVPUSH SCH (10:06)
[2023-02-14] MEDS: MIDODRINE HCL 2.5 MG TABLET PO SCH ×2 (10:06→14:30)
[2023-02-14] MEDS: ASPIRIN COATED 81 MG TABLET.EC PO SCH (10:06)
[2023-02-14] MEDS: PANTOPRAZOLE 40 MG TABLET PO SCH (10:06)
[2023-02-14] MEDS: PREGABALIN 100 MG CAPSULE PO SCH (10:06)
[2023-02-14] MEDS: SPIRONOLACTONE 25 MG TABLET PO SCH (10:06)
[2023-02-14] MEDS: HEPARIN NA (PORCINE) 5,000 UNITS/ML 1ML VIAL SQ SCH (10:06)
[2023-02-14] MEDS: metoPROLOL SUCCINATE 25 MG TAB.SR.24H (FP) PO SCH (10:06)
[2023-02-14] MEDS: SACUBITRIL/VALSARTAN 24 MG-26 MG TABLET PO SCH (10:06)
[2023-02-14] MEDS: TOLTERODINE TARTRATE LA 2 MG CAP.SR.24H PO SCH (10:07)
[2023-02-14 14:32] VITALS: BP 103/64; PULSE 75; TEMP 97.7
== END 2023-02-14 16:31 | DRG 194 ==
LOC: JER 15:10 → JERBED 19:10 → J4S 02-08 17:41
PROVIDERS: ADMIT Internal Medicine; ATTEND Family Medicine
DX: I11.0 Hypertensive heart disease with heart failure (principal); A04.71 Enterocolitis due to Clostridium difficile, recurrent; G62.9 Polyneuropathy, unspecified; Z68.43 Body mass index [BMI] 50.0-59.9, adult; I42.8 Other cardiomyopathies; E66.01 Morbid (severe) obesity due to excess calories; E03.9 Hypothyroidism, unspecified; E11.9 Type 2 diabetes mellitus without complications; E78.5 Hyperlipidemia, unspecified; G47.33 Obstructive sleep apnea (adult) (pediatric); I42.0 Dilated cardiomyopathy; J45.909 Unspecified asthma, uncomplicated; M79.7 Fibromyalgia; I50.23 Acute on chronic systolic (congestive) heart failure
CPT/HCPCS: 36415; 71045-TC-FY; 80048; 80053; 80061; 81003; 82962; 83036; 83735; 83880; 84100; 84439; 84443; 84484; 85025; 85610; 85730; 87045; 87046; 87186; 87205; 87324; 87449; 87493; 87635; 93005; 93010; 93970-TC; 94640; 97116-GP; 97161-GP; 99285-25; J1644

== ENCOUNTER 2023-05-30 13:57 | Inpatient (IN) | payer OTHER ==
[2023-05-30] MEDS ORDERED: FUROSEMIDE 40 MG/4 ML INJECTABLE VIAL IVPUSH ONE (16:30)
[2023-05-30 16:42] LABS: BASO % 0.5 % (0-2.0); EOS % 4.3 % (0-4.5); HEMATOCRIT 37.8 % (32.4-45.2); HEMOGLOBIN 12.1 GM/dL (10.7-15.3); LYMPH % 24.8 % (8-40); MCH 27.4 pg (25.7-33.7); MEAN CELL VOLUME 85.7 fl (80-96); MEAN PLT VOLUME 9.7 fl (7.5-11.1); MONO % 7.8 % (3.8-10.2); NEUT % 62.6 % (42.8-82.8); PLATELET COUNT 135 10^3/uL (134-434); RBC 4.41 M/mm3 (3.60-5.2); WHITE BLOOD COUNT 6.4 K/mm3 (4.0-10.0)
[2023-05-30 17:01] LABS: POTASSIUM 4.3 mmol/L (3.5-5.1)
[2023-05-30 17:03] LABS: CALCIUM 8.5 mg/dL (8.5-10.1)
[2023-05-30 17:04] LABS: ALBUMIN 2.8 g/dl (3.4-5.0); BLOOD UREA NITROGEN 18.7 mg/dL (7-18)
[2023-05-30 17:07] LABS: CREATININE 0.9 mg/dL (0.55-1.3)
[2023-05-30 17:08] LABS: BILIRUBIN,TOTAL 0.4 mg/dL (0.2-1)
[2023-05-30 17:12] LABS: N-TERMINAL BNP 405.7 pg/ml (5-125)
[2023-05-30] MEDS ORDERED: FUROSEMIDE 40 MG/4 ML INJECTABLE VIAL ONE (17:21)
[2023-05-30] MEDS ORDERED: ACETAMINOPHEN 1000 MG/100 ML BAG IVPB PRN (20:29)
[2023-05-31] MEDS ORDERED: MIDODRINE HCL 2.5 MG TABLET PO ONE
[2023-05-31] MEDS ORDERED: MIDODRINE HCL 5 MG TABLET ONE (00:19)
[2023-05-31] MEDS ORDERED: ACETAMINOPHEN INJECTION 100 ML IVPB ONE (00:26)
[2023-05-31 00:28] LABS: URINE APPEARANCE CLEAR; URINE BILIRUBIN NEGATIVE (NEGATIVE); URINE COLOR YELLOW; URINE GLUCOSE (UA) 3+ (NEGATIVE); URINE KETONE NEGATIVE (NEGATIVE); URINE LEUK ESTERASE NEGATIVE (NEGATIVE); URINE NITRITE NEGATIVE (NEGATIVE); URINE PROTEIN NEGATIVE (NEGATIVE); URINE UROBILINOGEN 0.2 mg/dL (0.2-1.0)
[2023-05-31 02:23] VITALS: BMI 59.1
[2023-05-31] MEDS ORDERED: clonazePAM 2 MG TABLET PO PRN (07:08)
[2023-05-31] MEDS ORDERED: ALBUTEROL SO4 2.5/IPRATROPIUM 0.5 INH SOL 3 ML VIAL.NEB. NEB PRN (07:40)
[2023-05-31 07:54] LABS: BASO % 0.7 % (0-2.0); EOS % 3.5 % (0-4.5); HEMATOCRIT 37.6 % (32.4-45.2); HEMOGLOBIN 11.9 GM/dL (10.7-15.3); LYMPH % 25.8 % (8-40); MCH 27.4 pg (25.7-33.7); MCHC 31.6 g/dl (32.0-36.0); MEAN CELL VOLUME 86.7 fl (80-96); MEAN PLT VOLUME 10.1 fl (7.5-11.1); MONO % 8.8 % (3.8-10.2); NEUT % 61.2 % (42.8-82.8); PLATELET COUNT 134 10^3/uL (134-434); RBC 4.34 M/mm3 (3.60-5.2); RDW 15.3 % (11.6-15.6); WHITE BLOOD COUNT 6.9 K/mm3 (4.0-10.0)
[2023-05-31 08:00] LABS: INR 1.13 (0.83-1.09); PROTHROMBIN TIME (PATIENT) 13.1 SEC (9.7-13.0)
[2023-05-31 08:39] LABS: BLOOD UREA NITROGEN 19.8 mg/dL (7-18); MAGNESIUM 1.9 mg/dL (1.8-2.4)
[2023-05-31 08:42] LABS: CREATININE 0.8 mg/dL (0.55-1.3); PHOSPHOROUS 4.3 mg/dL (2.5-4.9)
[2023-05-31] MEDS ORDERED: FUROSEMIDE 40 MG/4 ML INJECTABLE VIAL IVPUSH ONE (12:44)
[2023-05-31] MEDS: DULoxetine HCL 30 MG CAPSULE.DR PO SCH ×2 (13:15→22:07)
[2023-05-31] MEDS: PANTOPRAZOLE 40 MG TABLET PO SCH (14:46)
[2023-05-31] MEDS: ASPIRIN COATED 81 MG TABLET.EC PO SCH (14:46)
[2023-05-31] MEDS: CYCLOBENZAPRINE HCL 10 MG TABLET (FP) PO SCH ×2 (14:46→22:08)
[2023-05-31] MEDS: SPIRONOLACTONE 25 MG TABLET PO SCH (14:46)
[2023-05-31] MEDS: PREGABALIN 100 MG CAPSULE PO SCH ×2 (14:46→22:07)
[2023-05-31] MEDS: POLYETHYLENE GLYCOL (HEALTHYLAX) 3350 17 GM PACKET PO SCH (14:46)
[2023-05-31] MEDS: clonazePAM 2 MG TABLET PO PRN ×2 (14:54→22:14)
[2023-05-31] MEDS: LEVOTHYROXINE NA 125 MCG TABLET (FP) PO SCH (15:07)
[2023-05-31] MEDS: INSULIN SLIDING SCALE (NOVOLOG) 1 VIAL SQ SCH ×2 (17:43→22:06)
[2023-05-31] MEDS: SACUBITRIL/VALSARTAN 24 MG-26 MG TABLET PO SCH (22:07)
[2023-05-31] MEDS: traMADol HCL 50 MG TABLET PO SCH (22:07)
[2023-05-31] MEDS: MELATONIN 5 MG TABLETS PO PRN (22:08)
[2023-05-31] MEDS: DOCUSATE SODIUM 100 MG CAPSULE (FP) PO SCH (22:09)
[2023-06-01] MEDS: INSULIN SLIDING SCALE (NOVOLOG) 1 VIAL SQ SCH ×4 (06:03→22:45)
[2023-06-01] MEDS: ACETAMINOPHEN 325 MG TABLET (FP) PO PRN ×2 (06:05→19:06)
[2023-06-01] MEDS: CYCLOBENZAPRINE HCL 10 MG TABLET (FP) PO SCH ×3 (06:05→22:44)
[2023-06-01] MEDS: FUROSEMIDE 40 MG/4 ML INJECTABLE VIAL IVPUSH SCH ×2 (06:05→13:40)
[2023-06-01] MEDS: LEVOTHYROXINE NA 125 MCG TABLET (FP) PO SCH (06:05)
[2023-06-01] MEDS: SPIRONOLACTONE 25 MG TABLET PO SCH (10:14)
[2023-06-01] MEDS: DULoxetine HCL 30 MG CAPSULE.DR PO SCH ×2 (10:14→22:44)
[2023-06-01] MEDS: ASPIRIN COATED 81 MG TABLET.EC PO SCH (10:15)
[2023-06-01] MEDS: metoPROLOL SUCCINATE 25 MG TAB.SR.24H (FP) PO SCH (10:15)
[2023-06-01] MEDS: POLYETHYLENE GLYCOL (HEALTHYLAX) 3350 17 GM PACKET PO SCH (10:15)
[2023-06-01] MEDS: PREGABALIN 100 MG CAPSULE PO SCH ×2 (10:15→22:43)
[2023-06-01] MEDS: PANTOPRAZOLE 40 MG TABLET PO SCH (10:15)
[2023-06-01] MEDS: SACUBITRIL/VALSARTAN 24 MG-26 MG TABLET PO SCH ×2 (10:15→22:44)
[2023-06-01] MEDS: clonazePAM 2 MG TABLET PO PRN ×2 (10:21→22:44)
[2023-06-01] MEDS: EMPAGLIFLOZIN (JARDIANCE) 10 MG TABLET PO SCH (10:32)
[2023-06-01] MEDS: MELATONIN 5 MG TABLETS PO PRN (22:43)
[2023-06-01] MEDS: DOCUSATE SODIUM 100 MG CAPSULE (FP) PO SCH (22:44)
[2023-06-01] MEDS: traMADol HCL 50 MG TABLET PO SCH (22:44)
[2023-06-02] MEDS: FUROSEMIDE 40 MG/4 ML INJECTABLE VIAL IVPUSH SCH ×2 (06:37→14:17)
[2023-06-02] MEDS: INSULIN SLIDING SCALE (NOVOLOG) 1 VIAL SQ SCH ×4 (06:37→23:15)
[2023-06-02] MEDS: LEVOTHYROXINE NA 125 MCG TABLET (FP) PO SCH (06:37)
[2023-06-02] MEDS: CYCLOBENZAPRINE HCL 10 MG TABLET (FP) PO SCH ×3 (06:37→22:12)
[2023-06-02] MEDS: ASPIRIN COATED 81 MG TABLET.EC PO SCH (09:53)
[2023-06-02] MEDS: PREGABALIN 100 MG CAPSULE PO SCH ×2 (09:53→22:11)
[2023-06-02] MEDS: DULoxetine HCL 30 MG CAPSULE.DR PO SCH ×2 (09:53→22:12)
[2023-06-02] MEDS: EMPAGLIFLOZIN (JARDIANCE) 10 MG TABLET PO SCH (09:53)
[2023-06-02] MEDS: PANTOPRAZOLE 40 MG TABLET PO SCH (09:54)
[2023-06-02] MEDS: POLYETHYLENE GLYCOL (HEALTHYLAX) 3350 17 GM PACKET PO SCH (09:56)
[2023-06-02] MEDS ORDERED: INSULIN (NOVOLOG) ASPART 100 UNITS/ML 10ML VIAL ONE ×2 (11:24→17:07)
[2023-06-02] MEDS ORDERED: BENZOCAINE/MENTHOL 1 EACH LOZENGE MM PRN (12:18)
[2023-06-02] MEDS ORDERED: BENZOCAINE/MENTH/CETYLPYRD CL 1 EACH LOZENGE MM PRN (12:40)
[2023-06-02] MEDS: SACUBITRIL/VALSARTAN 24 MG-26 MG TABLET PO SCH ×2 (12:45→22:11)
[2023-06-02] MEDS: SPIRONOLACTONE 25 MG TABLET PO SCH (12:45)
[2023-06-02] MEDS: metoPROLOL SUCCINATE 25 MG TAB.SR.24H (FP) PO SCH (14:25)
[2023-06-02] MEDS: ALBUTEROL SO4 2.5/IPRATROPIUM 0.5 INH SOL 3 ML VIAL.NEB. NEB SCH ×2 (15:29→21:05)
[2023-06-02] MEDS ORDERED: ACETAMINOPHEN 1000 MG/100 ML BAG IVPB ONE (15:30)
[2023-06-02] MEDS: MELATONIN 5 MG TABLETS PO PRN (22:11)
[2023-06-02] MEDS: traMADol HCL 50 MG TABLET PO SCH (22:12)
[2023-06-02] MEDS: DOCUSATE SODIUM 100 MG CAPSULE (FP) PO SCH (22:13)
[2023-06-02] MEDS: clonazePAM 2 MG TABLET PO PRN (22:13)
[2023-06-03] MEDS: ACETAMINOPHEN 325 MG TABLET (FP) PO PRN (06:01)
[2023-06-03] MEDS: LEVOTHYROXINE NA 125 MCG TABLET (FP) PO SCH (06:02)
[2023-06-03] MEDS: FUROSEMIDE 40 MG/4 ML INJECTABLE VIAL IVPUSH SCH ×2 (06:02→15:08)
[2023-06-03] MEDS: CYCLOBENZAPRINE HCL 10 MG TABLET (FP) PO SCH ×3 (06:02→21:20)
[2023-06-03] MEDS: INSULIN SLIDING SCALE (NOVOLOG) 1 VIAL SQ SCH ×4 (06:03→22:50)
[2023-06-03 07:41] LABS: BASO % 0.4 % (0-2.0); EOS % 2.7 % (0-4.5); HEMATOCRIT 36.1 % (32.4-45.2); HEMOGLOBIN 11.5 GM/dL (10.7-15.3); LYMPH % 22.6 % (8-40); MCH 27.6 pg (25.7-33.7); MCHC 31.7 g/dl (32.0-36.0); MEAN CELL VOLUME 87.1 fl (80-96); MEAN PLT VOLUME 9.9 fl (7.5-11.1); MONO % 8.7 % (3.8-10.2); NEUT % 65.6 % (42.8-82.8); PLATELET COUNT 135 10^3/uL (134-434); RBC 4.15 M/mm3 (3.60-5.2); RDW 15.8 % (11.6-15.6); WHITE BLOOD COUNT 6.4 K/mm3 (4.0-10.0)
[2023-06-03 07:52] LABS: POTASSIUM 3.7 mmol/L (3.5-5.1)
[2023-06-03 08:00] LABS: ALBUMIN 2.9 g/dl (3.4-5.0); BLOOD UREA NITROGEN 21.1 mg/dL (7-18)
[2023-06-03 08:03] LABS: CREATININE 0.9 mg/dL (0.55-1.3)
[2023-06-03 08:05] LABS: BILIRUBIN,TOTAL 0.4 mg/dL (0.2-1); TOT PROT 6.1 g/dl (6.4-8.2)
[2023-06-03] MEDS: ALBUTEROL SO4 2.5/IPRATROPIUM 0.5 INH SOL 3 ML VIAL.NEB. NEB SCH ×4 (08:15→20:45)
[2023-06-03] MEDS: EMPAGLIFLOZIN (JARDIANCE) 10 MG TABLET PO SCH (10:07)
[2023-06-03] MEDS: PANTOPRAZOLE 40 MG TABLET PO SCH (10:08)
[2023-06-03] MEDS: DULoxetine HCL 30 MG CAPSULE.DR PO SCH ×2 (10:08→21:19)
[2023-06-03] MEDS: ASPIRIN COATED 81 MG TABLET.EC PO SCH (10:08)
[2023-06-03] MEDS: PREGABALIN 100 MG CAPSULE PO SCH ×2 (10:08→21:18)
[2023-06-03] MEDS: POLYETHYLENE GLYCOL (HEALTHYLAX) 3350 17 GM PACKET PO SCH (10:08)
[2023-06-03] MEDS: SPIRONOLACTONE 25 MG TABLET PO SCH (10:09)
[2023-06-03] MEDS: metoPROLOL SUCCINATE 25 MG TAB.SR.24H (FP) PO SCH (10:09)
[2023-06-03] MEDS: SACUBITRIL/VALSARTAN 24 MG-26 MG TABLET PO SCH ×2 (10:09→21:18)
[2023-06-03] MEDS: ACETAMINOPHEN 1000 MG/100 ML BAG IVPB PRN ×2 (12:39→17:48)
[2023-06-03] MEDS: traMADol HCL 50 MG TABLET PO SCH (21:20)
[2023-06-03] MEDS: MELATONIN 5 MG TABLETS PO PRN (21:21)
[2023-06-03] MEDS: DOCUSATE SODIUM 100 MG CAPSULE (FP) PO SCH (21:57)
[2023-06-04] MEDS: CYCLOBENZAPRINE HCL 10 MG TABLET (FP) PO SCH ×3 (05:46→22:39)
[2023-06-04] MEDS: FUROSEMIDE 40 MG/4 ML INJECTABLE VIAL IVPUSH SCH ×3 (05:46→13:40)
[2023-06-04] MEDS: ACETAMINOPHEN 1000 MG/100 ML BAG IVPB PRN (05:47)
[2023-06-04] MEDS: LEVOTHYROXINE NA 125 MCG TABLET (FP) PO SCH ×2 (05:48→06:15)
[2023-06-04] MEDS: INSULIN SLIDING SCALE (NOVOLOG) 1 VIAL SQ SCH ×4 (06:15→22:48)
[2023-06-04] MEDS: ALBUTEROL SO4 2.5/IPRATROPIUM 0.5 INH SOL 3 ML VIAL.NEB. NEB SCH ×4 (07:35→20:10)
[2023-06-04] MEDS: SACUBITRIL/VALSARTAN 24 MG-26 MG TABLET PO SCH ×2 (09:00→22:39)
[2023-06-04] MEDS: DULoxetine HCL 30 MG CAPSULE.DR PO SCH ×2 (09:00→22:39)
[2023-06-04] MEDS: POLYETHYLENE GLYCOL (HEALTHYLAX) 3350 17 GM PACKET PO SCH (09:00)
[2023-06-04] MEDS: PREGABALIN 100 MG CAPSULE PO SCH ×2 (09:00→22:38)
[2023-06-04] MEDS: ASPIRIN COATED 81 MG TABLET.EC PO SCH (09:00)
[2023-06-04] MEDS: SPIRONOLACTONE 25 MG TABLET PO SCH (09:01)
[2023-06-04] MEDS: EMPAGLIFLOZIN (JARDIANCE) 10 MG TABLET PO SCH (09:01)
[2023-06-04] MEDS: metoPROLOL SUCCINATE 25 MG TAB.SR.24H (FP) PO SCH (09:01)
[2023-06-04] MEDS: PANTOPRAZOLE 40 MG TABLET PO SCH (09:01)
[2023-06-04] MEDS ORDERED: INSULIN (NOVOLOG) ASPART 100 UNITS/ML 10ML VIAL ONE (10:59)
[2023-06-04] MEDS: traMADol HCL 50 MG TABLET PO SCH (22:38)
[2023-06-04] MEDS: MELATONIN 5 MG TABLETS PO PRN (22:39)
[2023-06-04] MEDS: DOCUSATE SODIUM 100 MG CAPSULE (FP) PO SCH (22:40)
[2023-06-05] MEDS: CYCLOBENZAPRINE HCL 10 MG TABLET (FP) PO SCH ×3 (06:04→21:11)
[2023-06-05] MEDS: FUROSEMIDE 40 MG/4 ML INJECTABLE VIAL IVPUSH SCH ×2 (06:04→13:34)
[2023-06-05] MEDS: LEVOTHYROXINE NA 125 MCG TABLET (FP) PO SCH (06:04)
[2023-06-05] MEDS: INSULIN SLIDING SCALE (NOVOLOG) 1 VIAL SQ SCH ×4 (06:41→21:13)
[2023-06-05] MEDS: ALBUTEROL SO4 2.5/IPRATROPIUM 0.5 INH SOL 3 ML VIAL.NEB. NEB SCH ×3 (08:35→15:08)
[2023-06-05] MEDS: SACUBITRIL/VALSARTAN 24 MG-26 MG TABLET PO SCH ×2 (09:41→22:00)
[2023-06-05] MEDS: PREGABALIN 100 MG CAPSULE PO SCH ×2 (09:42→21:11)
[2023-06-05] MEDS: POLYETHYLENE GLYCOL (HEALTHYLAX) 3350 17 GM PACKET PO SCH (09:42)
[2023-06-05] MEDS: ASPIRIN COATED 81 MG TABLET.EC PO SCH (09:42)
[2023-06-05] MEDS: metoPROLOL SUCCINATE 25 MG TAB.SR.24H (FP) PO SCH (09:42)
[2023-06-05] MEDS: PANTOPRAZOLE 40 MG TABLET PO SCH (09:42)
[2023-06-05] MEDS: SPIRONOLACTONE 25 MG TABLET PO SCH (09:42)
[2023-06-05] MEDS: DULoxetine HCL 30 MG CAPSULE.DR PO SCH ×2 (09:42→21:11)
[2023-06-05] MEDS: EMPAGLIFLOZIN (JARDIANCE) 10 MG TABLET PO SCH (09:43)
[2023-06-05 14:40] LABS: PH,URINE 5.5 (5.0-8.0); URINE APPEARANCE CLOUDY; URINE BILIRUBIN NEGATIVE (NEGATIVE); URINE COLOR YELLOW; URINE GLUCOSE (UA) 3+ (NEGATIVE); URINE KETONE NEGATIVE (NEGATIVE); URINE LEUK ESTERASE NEGATIVE (NEGATIVE); URINE NITRITE NEGATIVE (NEGATIVE); URINE PROTEIN NEGATIVE (NEGATIVE); URINE UROBILINOGEN 0.2 mg/dL (0.2-1.0)
[2023-06-05] MEDS ORDERED: ACETAMINOPHEN 325 MG TABLET (FP) PO PRN (16:08)
[2023-06-05] MEDS: traMADol HCL 50 MG TABLET PO SCH (21:12)
[2023-06-05] MEDS: MELATONIN 5 MG TABLETS PO PRN (21:13)
[2023-06-05] MEDS: DOCUSATE SODIUM 100 MG CAPSULE (FP) PO SCH (21:54)
[2023-06-06] MEDS: INSULIN SLIDING SCALE (NOVOLOG) 1 VIAL SQ SCH ×2 (06:34→10:58)
[2023-06-06] MEDS: CYCLOBENZAPRINE HCL 10 MG TABLET (FP) PO SCH ×2 (06:34→14:15)
[2023-06-06] MEDS: LEVOTHYROXINE NA 125 MCG TABLET (FP) PO SCH (06:34)
[2023-06-06] MEDS: FUROSEMIDE 40 MG/4 ML INJECTABLE VIAL IVPUSH SCH (06:34)
[2023-06-06] MEDS: ALBUTEROL SO4 2.5/IPRATROPIUM 0.5 INH SOL 3 ML VIAL.NEB. NEB SCH ×4 (07:10→15:52)
[2023-06-06] MEDS: ASPIRIN COATED 81 MG TABLET.EC PO SCH (09:12)
[2023-06-06] MEDS: metoPROLOL SUCCINATE 25 MG TAB.SR.24H (FP) PO SCH (09:12)
[2023-06-06] MEDS: PANTOPRAZOLE 40 MG TABLET PO SCH (09:12)
[2023-06-06] MEDS: DULoxetine HCL 30 MG CAPSULE.DR PO SCH (09:12)
[2023-06-06] MEDS: PREGABALIN 100 MG CAPSULE PO SCH (09:12)
[2023-06-06] MEDS: EMPAGLIFLOZIN (JARDIANCE) 10 MG TABLET PO SCH (09:12)
[2023-06-06] MEDS: SPIRONOLACTONE 25 MG TABLET PO SCH (09:12)
[2023-06-06] MEDS: POLYETHYLENE GLYCOL (HEALTHYLAX) 3350 17 GM PACKET PO SCH (09:26)
[2023-06-06] MEDS ORDERED: TORSEMIDE 20 MG TABLET (FP) PO SCH (10:00)
[2023-06-06] MEDS: SACUBITRIL/VALSARTAN 24 MG-26 MG TABLET PO SCH (10:57)
[2023-06-06 13:52] LABS: POTASSIUM 4.2 mmol/L (3.5-5.1)
[2023-06-06 13:53] LABS: CALCIUM 8.3 mg/dL (8.5-10.1)
[2023-06-06 13:54] LABS: BLOOD UREA NITROGEN 28.1 mg/dL (7-18)
[2023-06-06 13:57] LABS: CREATININE 1.1 mg/dL (0.55-1.3)
[2023-06-06 15:07] VITALS: BP 116/77; PULSE 81; RESP 20; TEMP 98.1
== END 2023-06-06 16:14 | disposition home or self-care (01) | DRG 194 ==
LOC: JER 13:57 → JERBED 16:34 → J4W 05-31 01:43
PROVIDERS: ADMIT Internal Medicine; ATTEND Family Medicine
DX: I13.0 Hypertensive heart and chronic kidney disease with heart failure and stage 1 through stage 4 chronic kidney disease, or unspecified chronic kidney disease (principal); Z68.43 Body mass index [BMI] 50.0-59.9, adult; I42.0 Dilated cardiomyopathy; E66.01 Morbid (severe) obesity due to excess calories; E11.9 Type 2 diabetes mellitus without complications; E78.1 Pure hyperglyceridemia; M79.7 Fibromyalgia; R07.9 Chest pain, unspecified; I50.23 Acute on chronic systolic (congestive) heart failure; G47.33 Obstructive sleep apnea (adult) (pediatric); E03.9 Hypothyroidism, unspecified; N18.9 Chronic kidney disease, unspecified; E87.70 Fluid overload, unspecified; E78.5 Hyperlipidemia, unspecified
CPT/HCPCS: 0241U-QW; 36415; 71045-TC-FY; 74176-TC; 80048; 80053; 81003; 82550; 82962; 83735; 83880; 84100; 84443; 84484; 85025; 85610; 85730; 87086; 93005; 93010; 93970-TC; 94640; 94761; 97116-GP; 97161-GP; 99291